=== PATIENT | female | born 1995 | race African-American/Black ===

== ENCOUNTER 2021-11-14 08:00 | Outpatient (CLI) | payer BC, SELFPAY ==
--- NOTE | 2021-11-14 08:15 | MR_ITS ---
[address] [address] Phone:?[phone] Fax:?[phone] Referring Physician Information: Marium Whiting D.D.S. [facility] [phone] [facility] [address] Phone:?[phone] Fax:?[phone] Patient:?Faith Jourdan Tobin.O.B:?1995 Sex:?Female Phone:?[phone] [facility] MRN:?[id number] Exam Date:?11/14/2021 ? EXAM: MRI OF THE TEMPOROMANDIBULAR JOINTS CLINICAL INFORMATION: A 26-year-old female with right greater than left temporomandibular joint pain. History of trauma. TECHNICAL INFORMATION: Examination was performed using the dual 3-inch surface coil device, employing 4 mm thick axial T1-weighted images of the skull base followed by bilateral closed-mouth cephalometrically corrected sagittal dual- echo and STIR images and fully opened mouth proton density oblique sagittal, 3 mm thickness sagittal images through the midcondyle of both joints. T1-weighted coronal images were also acquired. INTERPRETATION: Images reveal normal and symmetrical appearance of the masticatory muscles. The visualized intracranial structures appear normal. Mucosal thickening in the maxillary sinuses is demonstrated. Left TMJ: There is anterior displacement, elongation and deformity of the meniscus. There is regressive remodeling of the condyle with shortening of the proximal segment. There is widening of the anterior joint space. There is increased T2 signal within the condyle and flattening of the articular surface of the condylar head. Open-mouth images reveal severely restricted range of motion without reduction of the meniscus. Right TMJ: There is anterior displacement and elongation of the meniscus with widening of the anterior joint space. Remodeling of the condyle is demonstrated. The articular eminence is normal. Marrow signal characteristics 0 normal. Open- mouth images reveal severely restricted range of motion without reduction of the meniscus. CONCLUSION: 1. Left TMJ: Stage V (advanced) internal derangement. Abnormal marrow signal ray represent marrow edema, regional osteoporosis or early avascular necrosis within the condyle. 2. Right TMJ: Stage IV (intermediate to advanced) internal derangement. Severely restricted range of motion bilaterally. 3. Maxillary sinus mucosal thickening. Electronically signed on 11/15/2021 1:58:00 PM by Mickey Cobian M.D.
== END 2021-11-14 08:01 | disposition home or self-care (01) ==
LOC: MRI 08:02
PROVIDERS: Visit Provider Dentist General Practice
DX: M26.52 Limited mandibular range of motion (principal); M26.602 Left temporomandibular joint disorder, unspecified; M26.601 Right temporomandibular joint disorder, unspecified; J32.0 Chronic maxillary sinusitis
CPT/HCPCS: 70336

== ENCOUNTER 2021-11-27 20:00 | Outpatient (CLI) | payer BC, MEDICAID, SELFPAY | END 2021-11-27 20:01 | disposition home or self-care (01) | LOC: LKVREF 11-30 11:21 | PROVIDERS: Visit Provider Nurse Practitioner Family | DX: N89.8 Other specified noninflammatory disorders of vagina (principal) | CPT/HCPCS: 87491; 87591 ==

== ENCOUNTER 2022-03-01 11:15 | Outpatient (RCR) | payer BC, MEDICAID, SELFPAY | END 2022-03-04 08:03 | disposition home or self-care (01) | PROVIDERS: Visit Provider Dentist General Practice | DX: M79.10 Myalgia, unspecified site (principal); Z51.89 Encounter for other specified aftercare | CPT/HCPCS: 97035; 97110; 97140; 97162 ==

== ENCOUNTER 2022-06-20 09:55 | Outpatient (CLI) | payer BC, MEDICAID, SELFPAY ==
[2022-06-20 15:42] LABS: Chlamydia DNA Amplified* NOT DETECTED (No Detected); GC DNA Amplified* NOT DETECTED (No Detected)
== END 2022-06-20 09:56 | disposition home or self-care (01) ==
PROVIDERS: Visit Provider Advanced Practice Midwife
DX: Z01.419 Encounter for gynecological examination (general) (routine) without abnormal findings (principal); Z13.6 Encounter for screening for cardiovascular disorders; Z11.3 Encounter for screening for infections with a predominantly sexual mode of transmission
CPT/HCPCS: 0353U; 80061; 84702; 86592; 86703; 86803; 87340; 87491; 87591

== ENCOUNTER 2023-04-03 11:52 | Emergency (ER) | payer BC, MEDICAID, SELFPAY ==
[2023-04-03 12:27] VITALS: BP 117/83; PULSE 71; RESP 18; TEMP 36.6; O2SAT 99; BMI 28.9
--- OUTSIDE RECORDS SUMMARY | 2023-04-03 12:48 | XMS_ITS | Data Portability ---
Author Name Unknown Address [address] [place] [address] Phone [phone] Organization [facility] Address [address] [place] [phone] Assessment No assessment recorded. Plan of Treatment Reminders Order Date Submit Date Provider Last Modified By Organization Details Last Modified Time Details Appointments None recorded. Lab rapid SARS CoV 2 Ag, QL IA, respiratory specimen [address], [address] [place] [address], [id number], 14:12:37 rapid SARS CoV 2 Ag, QL IA, respiratory specimen [address], [address] [place] [address], [id number], 11:18:52 rapid SARS CoV 2 Ag, QL IA, respiratory specimen [address], [address] [place] [address], [id number], 15:48:11 Referral None recorded. Procedures None recorded. Surgeries None recorded. Imaging None recorded. Medication Orders None recorded. Patient TargetsNo targets recorded. Patient Instructions Encounter Date Encounter Id Patient Instructions Last Modified By Organization Details Last Modified Time 04/10/2021 [id number] Keep a safe distance. ... ?? Wear a mask. ... ?? Encourage proper hygiene. ... ?? The best way to protect yourself and others is to stay home for 14 days if you think you? ve been exposed to someone who has COVID-19. ?? Watch for fever (100.4??F or higher), cough, shortness of breath, or other symptoms of COVID-19. ?? Consider getting tested for COVID-19. Even if you test negative for COVID-19 or feel healthy, you should still stay home (quarantine) for 14 days after your last contact with a person who has COVID-19. This is because symptoms may appear 2 to 14 days after exposure to the virus, and some infected people never have symptoms but are still contagious. ?? Do not travel until 14 days after your last possible exposure. ?? Monitor yourself and household members for symptoms of COVID-19. ?? Get information about COVID-19 testing if you feel sick. Look for emergency warning signs* for COVID-19. If you have any of these signs, seek emergency medical care immediately ?? Trouble breathing ?? Persistent pain or pressure in the chest ?? New confusion ?? Inability to wake or stay awake [email or web address] Not available 04/16/2021 14:12:36 02/20/2021 [id number] Keep a safe distance. ... ?? Wear a mask. ... ?? Encourage proper hygiene. ... ?? The best way to protect yourself and others is to stay home for 14 days if you think you? ve been exposed to someone who has COVID-19. ?? Watch for fever (100.4??F or higher), cough, shortness of breath, or other symptoms of COVID-19. ?? Consider getting tested for COVID-19. Even if you test negative for COVID-19 or feel healthy, you should still stay home (quarantine) for 14 days after your last contact with a person who has COVID-19. This is because symptoms may appear 2 to 14 days after exposure to the virus, and some infected people never have symptoms but are still contagious. ?? Do not travel until 14 days after your last possible exposure. ?? Monitor yourself and household members for symptoms of COVID-19. ?? Get information about COVID-19 testing if you feel sick. Look for emergency warning signs* for COVID-19. If you have any of these signs, seek emergency medical care immediately ?? Trouble breathing ?? Persistent pain or pressure in the chest ?? New confusion ?? Inability to wake or stay awake Not available 02/27/2021 11:13:39 [email or web address] Not available 02/27/2021 11:13:32 02/01/2021 [id number] Keep a safe distance. ... ?? Wear a mask. ... ?? Encourage proper hygiene. ... ?? The best way to protect yourself and others is to stay home for 14 days if you think you? ve been exposed to someone who has COVID-19. ?? Watch for fever (100.4??F or higher), cough, shortness of breath, or other symptoms of COVID-19. ?? Consider getting tested for COVID-19. Even if you test negative for COVID-19 or feel healthy, you should still stay home (quarantine) for 14 days after your last contact with a person who has COVID-19. This is because symptoms may appear 2 to 14 days after exposure to the virus, and some infected people never have symptoms but are still contagious. ?? Do not travel until 14 days after your last possible exposure. ?? Monitor yourself and household members for symptoms of COVID-19. ?? Get information about COVID-19 testing if you feel sick. Look for emergency warning signs* for COVID-19. If you have any of these signs, seek emergency medical care immediately ?? Trouble breathing ?? Persistent pain or pressure in the chest ?? New confusion ?? Inability to wake or stay awake [email or web address] Not available 02/01/2021 11:18:21 Reason for Referral None Reported. Results Created Date Observation Date Name Description Value Unit Range Abnormal Flag LastModifiedBy Organization Detail LastModifiedTime 02/02/20 21 02/01/2021 rapid SARS CoV 2 Ag, QL IA, respi rator y speci men Results negati ve Not Available [address], [address], 02/01/2021 11:18:10 04/10/19 22 04/10/2021 rapid SARS CoV 2 Ag, QL IA, respi rator y speci men Results positi ve Not Available [address], [address], 04/10/2021 11:16:00 Result Notes None recorded. Medical Equipment None Reported. Medications Name Sig Start Date Stop Date Status Note LastModified by Organization Details LastModified Time ondansetron HCl 4 mg tablet TAKE 1 TABLET BY MOUTH EVERY 6 HOURS NEEDED active Not Available Not Available No t Available metronidazole 500 mg tablet TAKE 1 TABLET BY MOUTH DAILY active Not Available Not Available No t Available valacyclovir 500 mg tablet TAKE 1 TABLET BY MOUTH TWICE DAILY. START AT 36 WEEKS active Not Available Not Available No t Available pantoprazole 20 mg tablet,delayed release TAKE 1 TABLET BY MOUTH DAILY active Not Available Not Available No t Available Vitals None Recorded Social History None recorded. Functional Status None recorded. Mental Status None recorded. Family History Nothing Reported. Medical History No medical history recorded. Gynecological HistoryNo gynecological history recorded. Obstetrics History GPAL:G 0 P 0 0 0 0 Past Encounters Encounter ID Performer Location Encounter Start Date Encounter Closed Date Diagnosis/Indication [id number] [address] 02/01/2021 11:15:19 02/01/2021 11:25:30 Exposure to SARS-CoV-2 Counseling [id number] AS[address] Tello [address] [address] 02/20/2021 13:20:14 02/20/2021 13:26:36 Exposure to SARS-CoV-2 Counseling [id number] ASAD Tello Jey [address] [address] 04/10/2021 11:03:57 04/10/2021 11:16:22 Exposure to SARS-CoV-2 Sore throat Fever Cough Counseling COVID-19 Health Concerns Section Related Observation LastModified by Organization Detai ls LastModified Time None Recorded Concern Status LastModified by Organization Details LastModified Time None Recorded Advance Directives Directive None Recorded Payers Encounter Date Sequence Insurance Name Policy Number Policy García Covered Member ID García Member ID Guarantor Name 04/10/2021 2 UCARE - UCARE - DOS ON OR AFTER 2021 (MEDICAID REPLACEMENT - HMO) Faith Soliman [id number] Faith Soliman 02/20/2021 1 [employer]ARE - DOS PRIOR TO 2021 (MEDICAID REPLACEMENT - HMO) MAMTA Soliman [id number] Faith Soliman 02/01/2021 1 [employer] - DOS PRIOR TO 2021 (MEDICAID REPLACEMENT - HMO) MAMTA Soliman [id number] Faith Soliman Notes Date Note Type Note Provider Name and Address Organization Details Recorded Time 02/01/2021 text/html HPI Notes: Patient here for covid testing due to exposure. Patient has cough, runny nose, slight headaches, and no fevers or chills. ASAD Tello [address] [place], [address], [employer] 02/08/2021 15:48:19 02/20/2021 text/html HPI Notes: patient here for covid testing due to exposure ASAD Tello [address] [place], [address], [employer] 03/02/2021 11:18:56 04/10/2021 text/html HPI Notes: Patient complains for fever, sorethroat and cough. RUSTY TelloC [address] [place], [address], [employer] 04/16/2021 14:12:41 OBGyn Episode No OBEpisode recorded.
--- OUTSIDE RECORDS SUMMARY | 2023-04-03 12:48 | XMS_ITS | Referral Summary ---
Author Name Unknown Organization [place] Address [facility] [place] [address] Care Team Providers Care Developmental Writing Instructor Name Role Phone Beka Baker MD Primary Care Provider [phone] Allergies No known active allergies Medications Medication Sig Dispensed Refills Start Date End Date Status clindamycin-benzoyl peroxide (BENZACLIN) gelIndications:Routin e infant or child health check Apply topically 2 times daily. 50 g 11 10/08/2010 Active Active Problems Problem Noted Date Diagnosed Date Myopia 12/05/2006 Cataract Overview: congenital Problem list name updated by automated process. Provider to review Resolved Problems Problem Noted Date Diagnosed Date Resolved Date NO ACTIVE PROBLEMS 04/28/2004 7 Immunizations Name Administration Dates Next Due DTAP (<7y) 09/06/2002, 9,03/06/1998,01/11/1998, 1997 HEPA 2009,03/06/2009 HIB (PRP-T) 12/11/1998,03/06/1998,01/11/1998 ,1997 HPV 03/06/2009,11/07/2008,09/06/2008 HepB 06/19/1998,1997,1997 MMR 09/06/2002,09/11/1998 Mantoux Tuberculin Skin Test 09/06/2002 Meningococcal ACWY (Menactra??) 11/07/2008 Poliovirus, inactivated (IPV) 09/06/2002, 999,01/11/1998,1997 Rotavirus, Pentavalent 06/19/1998,03/06/1998, TDAP Vaccine (Boostrix) 03/06/2009 Varicella 09/06/2008,09/11/1998 Social History Tobacco Use Types Packs/Day Years Used Date Smoking Tobacco: Never Smokeless Tobacco: Never Alcohol Use Standard Drinks/Week Comments No 0 (1 standard drink = 0.6 oz pur e alcohol) Adolescent Education Answer Date Record ed Getting School Help Needed Not on file 12/21 Sex and Gender Information Value Date Recorded Sex Assigned at Not on file Gender Identity Not on file Sexual Orientation Not on file Last Filed Vital Signs Vital Sign Reading Time Taken Comments Blood Pressure 112/72 08/29/2018 12:30 AM CDT Pulse 97 08/28/2018 11:03 PM CDT Temperature 36.7 ??C (98 ??F) 08/28/2018 11:03 PM CDT Respiratory Rate 18 08/28/2018 11:03 PM CDT Oxygen Saturation 100% 08/28/2018 11:03 PM CDT Inhaled Oxygen Concentration - - Weight 44.6 kg (98 lb 4 oz) 10/08/2010 1:47 PM C DT Height 156.2 cm (5' 1.5) 10/08/2010 1:47 PM CDT Body Mass Index 18.26 10/08/2010 1:47 PM CDT Plan of Treatment Not on file Care Teams Developmental Writing Instructor Relationship Specialty Start Date End Date Beka Baker MD PCP - General Family Practice 08/29/18
--- OUTSIDE RECORDS SUMMARY | 2023-04-03 12:48 | XMS_ITS | Clinical Summary ---
Author Name Unknown Organization [place] Address [facility] [place] [address] Care Team Providers Care Retail Client Solutions Consultant Name Role Phone Beka Baker MD Primary Care Provider [phone] Allergies No known active allergies Medications Medication [...] 10/08/2010 1:47 PM CDT Plan of Treatment Health Maintenance Due Date Last Done Comments ADVANCE CARE PLANNING 1995 ANNUAL REVIEW OF HM ORDERS 1995 COVID-19 Vaccine (#1) 03/10/1998 YEARLY PREVENTIVE VISIT 10/09/2011 10/09/19 11, 2009, 09/06/2008, Additional history exists HIV SCREENING 2012 HEPATITIS C SCREENING 09/09/2015 PAP 2018 DTAP/TDAP/TD IMMUNIZATION (7 - Td or Tdap) 03/06/2019 03/06/2009, 09/06/2002, 12/11/1998, Additional history exists INFLUENZA VACCINE (#1) 2022 PHQ-2 (once per calendar year) 2023 HEPATITIS B IMMUNIZATION Completed 999, 06/19/1998, 03/06/1998, Additional history exists IPV IMMUNIZATION Completed 09/06/2002, , 09/11/1998, Additional history exists MENINGITIS IMMUNIZATION Aged Out 11/07/2008 No l onger eligible based on patient's age to complete this topic HPV IMMUNIZATION Completed 03/06/2009, , 11/07/2008, Additional history exists Pneumococcal Vaccine: Pediatrics (0 to 5 Years) and At-Risk Patients (6 to 64 Years) Aged Out No longer eligible based on patient's age to complete this topic RSV MONOCLONAL ANTIBODY Aged Out No l onger eligible based on patient's age to complete this topic Care Teams Retail Client Solutions Consultant Relationship Specialty Start Date End Date Beka Baker MD PCP - General Family Practice 08/29/18
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
[2023-04-03] MEDS: KETOROLAC 15 MG/ML inj IVP (13:05)
[2023-04-03 13:06] LABS: Appearance Urine Clear (Clear); Bilirubin Urine Negative (Negative); Blood Urine 2+ (Negative); Color Urine Yellow (Yellow); Glucose Urine Negative (Negative); Ketones Urine Negative (Negative); Leukocyte Esterase Urine Negative (Negative); Nitrite Urine Negative (Negative); Protein Urine Negative (Negative); Specific Gravity Urine 1.025 (1.000-1.030); Urobilinogen Urine 0.2 (0.2-1.0)
[2023-04-03 13:08] LABS: Basophils Percent Auto 0.3 % (0.0-3.0); Eosinophils Percent Auto 2.2 % (0.0-7.0); Hematocrit 40.8 % (33.0-51.0); Hemoglobin* 13.3 gm/dL (12.0-16.0); Immature Granulocytes Pct Auto 0.1 %; Lymphocytes Percent Auto 23.5 % (20-44); Mean Corpuscular HGB Conc 33 gm/dL (32-36); Mean Corpuscular Hemoglobin 29 pg (26-34); Mean Corpuscular Volume 90 fL (80-100); Monocytes Percent Auto 8.3 % (0.0-11.0); Neutrophils Percent Auto 65.6 % (42.0-72.0); Platelet Count* 311 K/uL (140-440); RDW Coefficient of Variation % 12.5 % (11.5-15.5); Red Blood Count 4.56 m/uL (4.00-5.20); White Blood Count* 11.47 K/uL (4.50-11.00)
[2023-04-03 13:11] LABS: Ur HCG Qualitative* Negative (Negative)
[2023-04-03 13:19] LABS: Slide Review Reflex No
[2023-04-03 13:22] LABS: Potassium* 3.6 mmol/L (3.6-5.1)
[2023-04-03 13:24] LABS: Creatinine* 0.6 mg/dL (0.5-1.5); Est. Creatinine Clearance* 113.36; Estimated Glomerular Filt Rate 128 ml/min
[2023-04-03 13:25] LABS: Blood Urea Nitrogen* 13 mg/dL (5-24); Calcium* 8.8 mg/dL (8.4-10.6); Carbon Dioxide* 25 mmol/L (20-32)
[2023-04-03 13:26] LABS: Glucose* 98 mg/dL (60-115)
[2023-04-03 13:28] LABS: RBC Urine 0-2 (0-2); WBC Urine 0-2 (0-5)
[2023-04-03 13:40] VITALS: BP 127/82; PULSE 63; RESP 16; TEMP 36.2; O2SAT 99
[2023-04-03 13:52] LABS: Anion Gap 10 mEq/L (7-15); Chloride* 106 mmol/L (96-114); Sodium* 141 mmol/L (135-149)
== END 2023-04-03 14:13 | disposition home or self-care (01) ==
PROVIDERS: Emergency Provider Student in an Organized Health Care Education/Training Program
DX: N93.9 Abnormal uterine and vaginal bleeding, unspecified (principal)
CPT/HCPCS: 36415; 80048; 81001; 81025; 85025; 96374; 99283; 99284; J1885

== ENCOUNTER 2023-07-09 10:29 | Outpatient (CLI) | payer MEDICAID, SELFPAY ==
--- OUTSIDE RECORDS SUMMARY | 2023-07-09 10:36 | XMS_ITS | Referral Summary ---
Author Name Unknown Organization [place] Address [facility] [place] [address] Care Team Providers Care Director Of Training Name Role Phone Beka Baker MD Primary Care Provider [phone] Encounters Date Type Department Care Team Description 06/18/2023 Travel 06/18/2023 1:55 PM CDT - 06/18/2023 3:20 PM CDT Emergency [facility] Emergency Dept [address] [place] [phone] Jah Felder MD Vaginal bleeding in Discharge Disposition: Home or Self Care from Last 3 Months Allergies No known active allergies Medications Medication Sig Dispensed Refills Start Date End Date Status clindamycin-benzoyl peroxide (BENZACLIN) gelIndications:Routin e or child health check Apply topically 2 [...] Getting School Help Needed Not on file 06/17 Sex and Gender Information Value Date Recorded Sex Assigned at Not on file Gender Identity Not on file Sexual Orientation Not on file Last Filed Vital Signs Vital Sign Reading Time Taken Comments Blood Pressure 126/83 06/18/2023 2:29 PM CDT Pulse 64 06/18/2023 2:29 PM CDT Temperature 36.5 ??C (97.7 ??F) 06/18/2023 2:29 PM CD T Respiratory Rate 19 06/18/2023 2:29 PM CDT Oxygen Saturation 96% 06/18/2023 2:29 PM CDT Inhaled Oxygen Concentration - - Weight 44.6 kg (98 lb 4 oz) 10/08/2010 1:47 PM C DT Height 156.2 cm (5' 1.5) 10/08/2010 1:47 PM CDT Body Mass Index 18.26 10/08/2010 1:47 PM CDT Plan of Treatment Not on file Procedures Procedure Name Priority Date/Time Associated Diagnosis Comments ABO/RH TYPE AND SCREEN STAT 06/18/2023 2:25 PM CDT CBC WITH PLATELETS & DIFFERENTIAL STAT 06/18/2023 2:25 PM CDT TYPE AND SCREEN, ADULT STAT 06/18/2023 2:25 PM CDT CBC WITH PLATELETS AND DIFFERENTIAL STAT 06/18/2023 2:25 PM CDT EXTRA RED TOP TUBE STAT 06/18/2023 2: 25 PM CDT EXTRA BLUE TOP TUBE STAT 06/18/2023 2 :25 PM CDT HCG QUANTITATIVE STAT 06/18/2023 2:25 PM CDT EXTRA TUBE STAT 06/18/2023 2:25 PM CDT ROUTINE UA WITH MICROSCOPIC STAT 06/18/2023 1:32 PM CDT HCL PAP SMEAR Routine 08/09/1998 1:18 PM CDT Gynecologic Examination from Last 3 Months or Most Recently Relevant to Health Maintenance Results * Extra Red Top Tube (06/18/2023 2:25 PM CDT) Hold Specimen [facility] 06/18/2023 3:47 PM CDT [facility] LABORATORY Blood STRUCTURE OF RIGHT UPPER LIMB / Unknown Venipuncture / Unknown 06/18/2023 2:25 PM CDT 06/18/2023 2:34 PM CDT Jah Felder MD LAB - BLOOD ORDERABL ES [facility] LABORATORY [facility] [address] Lab (1st floor, no room number) [place] [address], [facility] * Extra Blue Top Tube (06/18/2023 2:25 PM CDT) Hold Specimen [facility] 06/18/2023 3:47 PM CDT RH LABORATORY Blood STRUCTURE OF RIGHT UPPER LIMB / Unknown Venipuncture / Unknown 06/18/2023 2:25 PM CDT 06/18/2023 2:34 PM CDT Jah Felder MD LAB - BLOOD ORDERABL ES [facility] [address] Lab (1st floor, no room number) [place] [address], [facility] * CBC with platelets and differential (06/18/2023 2:25 PM CDT) WBC Count 8.6 4.0 - 11.0 10e3/uL 06/18/2023 2:38 PM CDT [facility] LABORATORY RBC Count 4.59 3.80 - 5.20 10e6/uL 06/18/2023 2:38 PM CDT [facility] LAB[facility] Hemoglobin 13.4 11.7 - 15.7 g/dL 06/18/2023 2:38 PM CDT [facility] LAB[facility] Hematocrit 40.9 35.0 - 47.0 % 06/18/2023 2:38 PM CDT [facility] LAB[facility] MCV 89 78 - 100 fL 06/18/2023 2:38 PM CDT [facility] LAB[facility] MCH 29.2 26.5 - 33.0 pg 06/18/2023 2:38 PM CDT [facility] LAB[facility] MCHC 32.8 31.5 - 36.5 g/dL 06/18/2023 2:38 PM CDT [facility] LAB[facility] RDW 12.8 10.0 - 15.0 % 06/18/2023 2:38 PM CDT [facility] Platelet Count 305 150 - 450 10e3/uL 06/18/2023 2:38 PM CDT [facility] % Neutrophils 69 % 06/18/2023 2:38 PM CDT [facility] % Lymphocytes 20 % 06/18/2023 2:38 PM CDT [facility] % Monocytes 8 % 06/18/2023 2:38 PM CDT [facility] % Eosinophils 1 % 06/18/2023 2:38 PM CDT [facility] % Basophils 1 % 06/18/2023 2:38 PM CDT [facility] % Immature Granulocytes 1 % 06/18/2023 2:38 PM CDT [facility] LAB[facility] NRBCs per 100 WBC 0 <1 /100 024 2:38 PM CDT [facility] LAB[facility] Absolute Neutrophils 5.9 1.6 - 8.3 10e3/uL 06/18/2023 2:38 PM CDT [facility] LAB[facility] Absolute Lymphocytes 1.7 0.8 - 5.3 10e3/uL 06/18/2023 2:38 PM CDT [facility] LAB[facility] Absolute Monocytes 0.7 0.0 - 1.3 10e3/uL 06/18/2023 2:38 PM CDT [facility] LABORATORY Absolute Eosinophils 0.1 0.0 - 0.7 10e3/uL 06/18/2023 2:38 PM CDT [facility] LABORAT[facility] Absolute Basophils 0.1 0.0 - 0.2 10e3/uL 06/18/2023 2:38 PM CDT RH LABORATORY Absolute Immature Granulocytes 0.0 <=0.4 10e3/uL 06/18/2023 2:38 PM CDT RH LABORATORY Absolute NRBCs 0.0 10e3/uL 06/18/2023 2:38 PM CDT [facility] LAB[facility] Blood STRUCTURE OF RIGHT UPPER LIMB / Unknown Venipuncture / Unknown 06/18/2023 2:25 PM CDT 06/18/2023 2:34 PM CDT Jah Felder MD LAB - BLOOD ORDERABL ES LABORATORY [facility] [address] [facility] Lab (1st floor, no room number) [place] [address] * Adult Type and Screen (06/18/2023 2:25 PM CDT) ABO/RH(D) O POS 06/18/2023 1:32 PM CDT RH BLOOD BANK Antibody Screen Negative Negative 06/18/2023 1:32 PM CDT RH BLOOD BANK SPECIMEN EXPIRATION DATE [id number] 06/18/2023 1:32 PM CDT RH BLOOD BANK Blood STRUCTURE OF RIGHT UPPER LIMB / Unknown Venipuncture / Unknown 06/18/2023 2:25 PM CDT 06/18/2023 2:34 PM CDT Jah Felder MD LAB - BLOOD BANK [facility] T ORDER RH BLOOD BANK [address] [place] [address] * (ABNORMAL) HCG QUANTitative (blood) (06/18/2023 2:25 PM CDT) hCG Quantitative 44(H) <5 mIU/mL 06/18/19 3:04 PM CDT RH LABORATORY Comment: Adult: 0-5 mIU/mL for healthy non- person Neonates: Should be within normal ranges by 2 days after Blood STRUCTURE OF RIGHT UPPER LIMB / Unknown Venipuncture / Unknown 06/18/2023 2:25 PM CDT 06/18/2023 2:34 PM CDT Jha Felder MD LAB - BLOOD ORDERABL ES LABORATORY [facility] [address] Lab (1st floor, no room number) [place] [address] * (ABNORMAL) UA with Microscopic (06/18/2023 1:32 PM CDT) Color Urine Straw Colorless, Straw, Light Yellow, Yellow 06/18/2023 2:10 PM CDT LABORATORY Appearance Urine Clear Clear 06/18/19 2:10 PM CDT LABORATORY Glucose Urine Negative Negative mg/dL 06/18/2023 2:10 PM CDT LABORATORY Bilirubin Urine Negative Negative 2:10 PM CDT LABORATORY Ketones Urine Negative Negative mg/dL 06/18/2023 2:10 PM CDT LABORATORY Specific [place] Urine 1.011 1.003 - 1.035 06/18/2023 2:10 PM CDT LABORATORY Blood Urine Small(A) Negative 06/18/2023 2:10 PM CDT LABORATORY pH Urine 7.0 5.0 - 7.0 06/18/2023 2:10 PM CDT LABORATORY Protein Albumin Urine Negative Negative mg/dL 06/18/2023 2:10 PM CDT LABORATORY Urobilinogen Urine Normal Normal, 2.0 mg/dL 06/18/2023 2:10 PM CDT LABORATORY Nitrite Urine Negative Negative 06/18/2023 2:10 PM CDT RH LABORATORY Leukocyte Esterase Urine Negative Negative 06/18/2023 2:10 PM CDT RH LABORATORY Bacteria Urine Few(A) None Seen /HPF 06/18/2023 2:10 PM CDT RH LABORATORY RBC Urine 1 <=2 /HPF 06/18/2023 2:10 PM CDT RH LABORATORY WBC Urine <1 <=5 /HPF 06/18/2023 2:10 PM CDT RH LABORATORY Squamous Epithelials Urine 2(H) <=1 /HPF 06/18/2023 2:10 PM CDT LABORATORY Urine URINE SPECIMEN OBTAINED BY CLEAN CATCH PROCEDURE / Unknown Non-blood Collection / Unknown 06/18/2023 1:32 PM CDT 06/18/2023 1:58 PM CDT Jah Felder MD LAB - URINE ORDERABL ES LABORATORY [facility] Lab [address] [facility] Lab (1st floor, no room number) [place] [address] * PAP SMEAR (08/09/1998 1:18 PM CDT) Unlabelled DNR [facility] Biopsy Sent DNR [facility] Source VAG,CERV,E NDOCERV [facility] LMP POST [facility] PARA 3 [facility] 2 [facility] Clinical History DNR [facility] Therapy DNR [facility] Last Pap Diagnosis WITHIN NORMAL LIMITS [facility] PAP Date [id number] [facility] Specimen # DNR [facility] Tissue DNR [facility] Tissue Date DNR [facility] Statement of Adequacy [facility] Comment: SATISFACTORY FOR INTERPRETATION POST MENOPAUSAL PATIENT. ??NO ENDOCERVICAL CELLS SEEN. General Categorization DNR [facility] Descriptive Diagnosis [facility] Comment: WITHIN NORMAL LIMITS ATROPHIC CELL PATTERN Recommendations DNR [facility] DNR 114,,,,,, [facility] DNR DNR [facility] DNR DNR [facility] DNR DNR [facility] . [facility] Comment: ?PAP SMEARS ARE SUBJECT TO BOTH FALSE NEGATIVE AND FALSE ? POSITIVE RESULTS EVIDENCED BY DATA PUBLISHED IN THE ? MEDICAL LITERATURE. ??YOUR PATIENT'S RESULT SHOULD BE ? INTERPRETED IN THIS CONTEXT, TOGETHER WITH THE PATIENT'S ? HISTORY AND CLINICAL FINDINGS. TESTING LOCATION ? THIS TEST [facility] PERFOR[facility] AT [facility] ? [address]. [id number] ? PHONE NUMBERS FOR CYTOLOGY INQUIRES, INCLUDING SLIDE REQUESTS ? EXT. [id number] ?? EXT. [id number] 08/07/1998 Matilda Snyder MD LABORATORY [facility] from Last 3 Months or Most Recently Relevant to Health Maintenance Care Teams Director Of Training Relationship Specialty Start Date End Date Beka Baker MD PCP - General Family Practice 08/29/18
--- OUTSIDE RECORDS SUMMARY | 2023-07-09 10:36 | XMS_ITS | Encounter Summary ---
Author Name Unknown Organization [place] Address [facility] [place] [address] Care Team Providers Care Estimator Paperboard Boxes Name Role Phone Beka Baker MD Primary Care Provider [phone] Encounter Details Date Type Department Care Team (Late st Contact Info) Description 06/18/2023 1:55 PM CDT - 06/18/2023 3:20 PM CDT Emergency [facility] Emergency Dept [address] [place] [phone] Jah Felder MD [facility] [address] [facility] [address] [place] [phone] Vaginal bleeding in Discharge Disposition: Home or Self Care Social History Tobacco Use Types Packs/Day Years [...] on file Sexual Orientation Not on file documented as of this encounter Last Filed Vital Signs Vital Sign Reading Time Taken Comments Blood Pressure 126/83 06/18/2023 2:29 PM CDT Pulse 64 06/18/2023 2:29 PM CDT Temperature 36.5 ??C (97.7 ??F) 06/18/2023 2:29 PM CD T Respiratory Rate 19 06/18/2023 2:29 PM CDT Oxygen Saturation 96% 06/18/2023 2:29 PM CDT Inhaled Oxygen Concentration - - Weight - - Height - - Body Mass Index - - documented in this encounter Discharge Instructions * Attachments The following attachments cannot be sent through Care Everywhere. * : Vaginal Bleeding (Guinean) documented in this encounter Medications at Time of Discharge Medication Sig Dispensed Refills Start Date End Date clindamycin-benzoyl peroxide (BENZACLIN) gelIndications:Routine infant or child health check Apply topically 2 times daily. 50 g 11 10/08/2010 documented as of this encounter ED Notes * Katerina Harmon RN - 06/18/2023 1:28 PM CDT Pt presents to ED with c/o lower abdominal cramping since yesterday. Pt had some light vaginal bleeding yesterday. Had a positive home test today. LMP started 06/08; pt notes it started a week later than usual. Alert and ambulatory. Pt reports that this is her 3rd ; has 2 children at home. * Jah Felder MD - 06/18/2023 1:17 PM CDT History Chief Complaint: No chief complaint on file. MAR Soliman is a 27 year old female with complaints of vaginal bleeding and lower abdominal cramping beginning yesterday. Last menstrual period began a week late on June 08 and ended 2 days ago. She then began rebleeding yesterday. She has had 2 previous uncomplicated pregnancies. 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 Physical Exam Patient Vitals for the past 24 hrs: BP Temp Temp src Pulse Resp SpO2 06/18/23 1429 126/83 97.7 ??F (36.5 ??C) Oral 64 19 96 % 06/18/23 1428 -- -- -- -- -- 92 % 06/18/23 1427 126/83 -- -- 65 -- -- 06/18/23 1330 116/78 97.8 ??F (36.6 ??C) Temporal 71 16 98 % Physical Exam General: Patient is alert and cooperative. Neck: Normal range of motion and appearance. Cardiovascular: Normal rate. Pulmonary/Chest: Effort normal. Abdominal: Soft. No distension or tenderness. Musculoskeletal: Normal range of motion. Neurological: oriented, normal strength, sensation, and coordination. Skin: Warm and dry. No rash or bruising. Psychiatric: Normal mood and affect. Normal behavior and judgement. Emergency Department Course Laboratory: Labs Ordered and Resulted from Time of ED Arrival to Time of ED Departure HCG QUANTITATIVE - Abnormal Result Value hCG Quantitative 44 (*) ROUTINE UA WITH MICROSCOPIC - Abnormal Color Urine Straw Appearance Urine Clear Glucose Urine Negative Bilirubin Urine Negative Ketones Urine Negative Specific [place] Urine 1.011 Blood Urine Small (*) pH Urine 7.0 Protein Albumin Urine Negative Urobilinogen Urine Normal Nitrite Urine Negative Leukocyte Esterase Urine Negative Bacteria Urine Few (*) RBC Urine 1 WBC Urine <1 Squamous Epithelials Urine 2 (*) CBC WITH PLATELETS AND DIFFERENTIAL WBC Count 8.6 RBC Count 4.59 Hemoglobin 13.4 Hematocrit 40.9 MCV 89 MCH 29.2 MCHC 32.8 RDW 12.8 Platelet Count 305 % Neutrophils 69 % Lymphocytes 20 % Monocytes 8 % Eosinophils 1 % Basophils 1 % Immature Granulocytes 1 NRBCs per 100 WBC 0 Absolute Neutrophils 5.9 Absolute Lymphocytes 1.7 Absolute Monocytes 0.7 Absolute Eosinophils 0.1 Absolute Basophils 0.1 Absolute Immature Granulocytes 0.0 Absolute NRBCs 0.0 TYPE AND SCREEN, ADULT ABO/RH(D) O POS Antibody Screen Negative SPECIMEN EXPIRATION DATE [id number] Emergency Department Course & Assessments: Interventions: Medications - No data to display Social Determinants of Health affecting care: None Disposition: The patient was discharged. Impression & Plan [facility] Diagnoses: None Medical Decision Making: with +home UPT, trace cramping, spotting, LMP 06/08. Non tender exam. Rh+, quant hcg 44. Discussed extremely early , spontaneous , less likely ectopic; offered pelvic us, declines; advised follow up staff veterinarian this week for re-check, repeat hcg, return if escalating pain, bleeding,concerns. Diagnosis: ICD-10-CM 1. Vaginal bleeding in O46.90 Discharge Medications: Discharge Medication List as of 06/18/2023 3:18 PM Jah Felder MD 06/18/2023 Jah Felder MD Isaacson, Brian A, MD 06/19/23 0953 documented in this encounter Plan of Treatment Not on file documented as of this encounter Procedures Procedure Name Priority Date/Time Associated Diagnosis Comments EXTRA TUBE STAT 06/18/2023 2:25 PM CDT EXTRA RED TOP TUBE STAT 06/18/2023 2: 25 PM CDT EXTRA BLUE TOP TUBE STAT 06/18/2023 2 :25 PM CDT CBC WITH PLATELETS AND DIFFERENTIAL STAT 06/18/2023 2:25 PM CDT TYPE AND SCREEN, ADULT STAT 06/18/2023 2:25 PM CDT CBC WITH PLATELETS & DIFFERENTIAL STAT 06/18/2023 2:25 PM CDT HCG QUANTITATIVE STAT 06/18/2023 2:25 PM CDT ABO/RH TYPE AND SCREEN STAT 06/18/2023 2:25 PM CDT ROUTINE UA WITH MICROSCOPIC STAT 06/18/2023 1:32 PM CDT documented in this encounter Results * Adult Type and Screen (06/18/2023 2:25 PM CDT) ABO/RH(D) O POS 06/18/2023 1:32 PM CDT RH BLOOD BANK Antibody Screen Negative Negative 06/18/2023 1:32 PM CDT RH BLOOD BANK SPECIMEN EXPIRATION DATE [id number] 06/18/2023 1:32 PM CDT RH BLOOD BANK Blood STRUCTURE OF RIGHT UPPER LIMB / Unknown Venipuncture / Unknown 06/18/2023 2:25 PM CDT 06/18/2023 2:34 PM CDT Jah Felder MD LAB - BLOOD BANK [facility] T ORDER RH BLOOD BANK [address] [place] [address], [facility] * CBC with platelets and differential (06/18/2023 2:25 PM CDT) Pathologist [facility] WBC Count 8.6 4.0 - 11.0 10e3/uL [...] Felder MD LAB - BLOOD ORDERABL ES [facility] Lab [address] Lab (1st floor, no room number) [place] [address] * Extra Red Top Tube (06/18/2023 2:25 PM CDT) Hold Specimen [facility] 06/18/2023 3:47 PM CDT RH LABORATORY Blood STRUCTURE OF RIGHT UPPER LIMB / Unknown Venipuncture / Unknown 06/18/2023 2:25 PM CDT 06/18/2023 2:34 PM CDT Jah Felder MD LAB - BLOOD ORDERABL ES [facility] Lab [address] Lab (1st floor, no room number) [place] [address] * Extra Blue Top Tube (06/18/2023 2:25 PM CDT) Hold Specimen [facility] 06/18/2023 3:47 PM CDT RH LABORATORY Blood STRUCTURE OF RIGHT UPPER LIMB / Unknown Venipuncture / Unknown 06/18/2023 2:25 PM CDT 06/18/2023 2:34 PM CDT Jah Felder MD LAB - BLOOD ORDERABL ES LABORATORY [facility] [address] Lab (1st floor, no room number) [place] [phone] * (ABNORMAL) HCG QUANTitative (blood) (06/18/2023 2:25 PM CDT) Pathologist [facility] hCG Quantitative 44(H) <5 mIU/mL 06/18/19 24 3:04 PM CDT RH LABORATORY Comment: Adult: 0-5 mIU/mL for healthy non- person Neonates: Should be within normal ranges by 2 days after Blood STRUCTURE OF RIGHT UPPER LIMB / Unknown Venipuncture / Unknown 06/18/2023 2:25 PM CDT 06/18/2023 2:34 PM CDT Jah Felder MD LAB - BLOOD ORDERABL ES LABORATORY [facility] Lab [address] Lab (1st floor, no room number) [place] [address] * (ABNORMAL) UA with Microscopic (06/18/2023 1:32 PM CDT) Color Urine Straw Colorless, Straw, Light Yellow, Yellow 06/18/2023 2:10 PM CDT RH LABORATORY Appearance Urine Clear Clear 06/18/19 24 2:10 PM CDT RH LABORATORY Glucose Urine Negative Negative mg/dL 06/18/2023 2:10 PM CDT RH LABORATORY Bilirubin Urine Negative Negative 4 2:10 PM CDT RH LABORATORY Ketones Urine Negative Negative mg/dL 06/18/2023 2:10 PM CDT RH LABORATORY Specific [place] Urine 1.011 1.003 - 1.035 06/18/2023 2:10 PM CDT RH LABORATORY Blood Urine Small(A) Negative 06/18/2023 2:10 PM CDT RH LABORATORY pH Urine 7.0 5.0 - 7.0 06/18/2023 2:10 PM CDT RH LABORATORY Protein Albumin Urine Negative Negative mg/dL 06/18/2023 2:10 PM CDT RH LABORATORY Urobilinogen Urine Normal Normal, 2.0 mg/dL 06/18/2023 2:10 PM CDT RH LABORATORY Nitrite Urine Negative Negative 06/18/2023 2:10 PM CDT RH LABORATORY Leukocyte Esterase Urine Negative Negative 06/18/2023 2:10 PM CDT RH LABORATORY Bacteria Urine Few(A) None Seen /HPF 06/18/2023 2:10 PM CDT LABORATORY RBC Urine 1 <=2 /HPF 06/18/2023 2:10 PM CDT LABORATORY WBC Urine <1 <=5 /HPF 06/18/2023 2:10 PM CDT RH LABORATORY Squamous Epithelials Urine 2(H) <=1 /HPF 06/18/2023 2:10 PM CDT LABORATORY Urine URINE SPECIMEN OBTAINED BY CLEAN CATCH PROCEDURE / Unknown Non-blood Collection / Unknown 06/18/2023 1:32 PM CDT 06/18/2023 1:58 PM CDT Jah Felder MD LAB - URINE ORDERABL ES LABORATORY [facility] Lab [address] Lab (1st floor, no room number) [place] [address], [facility] documented in this encounter Visit Diagnoses Diagnosis Vaginal bleeding in Unspecified antepartum hemorrhage, unspecified as to episode of care documented in this encounter Care Teams Estimator Paperboard Boxes Relationship Specialty Start Date End Date Beka Baker MD PCP - General Family Practice 08/29/18 documented as of this encounter
--- OUTSIDE RECORDS SUMMARY | 2023-07-09 10:36 | XMS_ITS | Encounter Summary ---
Author Name Unknown Organization [place] Address [address] [facility] [place] [address] Care Team Providers Care Lacquer Maker Name Role Phone Beka Baker MD Primary Care Provider [phone] Encounter Details Date Type Department Care Team (Latest Contact Info) Description 06/18/2023 Travel Social History Tobacco Use Types Packs/Day Years [...] on file documented as of this encounter Plan of Treatment Not on file documented as of this encounter Visit Diagnoses Not on filedocumented in this encounter Care Teams Lacquer Maker Relationship Specialty Start Date End Date Beka Baker MD PCP - General Family Practice 08/29/18 documented as of this encounter
--- OUTSIDE RECORDS SUMMARY | 2023-07-09 10:36 | XMS_ITS | Clinical Summary ---
Author Name Unknown Organization [facility] Address [address] [facility] [place] [address] Care Team Providers Care Residency Coordinator Name Role Phone Beka Baker MD Primary Care Provider [phone] Allergies No known active allergies Medications Medication [...] Resolved Date NO ACTIVE PROBLEMS 04/28/2004 7 Encounters Date Type Department Care Team Description 06/18/2023 1:55 PM CDT - 06/18/2023 3:20 PM CDT Emergency [facility] Emergency Dept [address] [place] [address] Jah Felder MD Vaginal bleeding in Discharge Disposition: Home or Self Care 06/18/2023 Travel from Last 3 Months Immunizations Name Administration Dates Next Due DTAP [...] 1997 ANNUAL REVIEW OF HM ORDERS 1997 YEARLY PREVENTIVE VISIT 10/09/2011 10/09/19 11, 2009, 09/06/2008, Additional history exists HIV SCREENING 2012 HEPATITIS C SCREENING 09/09/2015 DTAP/TDAP/TD IMMUNIZATION (7 - Td or Tdap) 03/06/2019 03/06/2009, 09/06/2002, 12/11/1998, Additional history exists COVID-19 Vaccine ( season) 2022 INFLUENZA VACCINE (#1) 2022 PHQ-2 (once per calendar year) 2023 PAP 06/20/2025 06/20/2022 HEPATITIS B IMMUNIZATION Completed 999, 06/19/1998, 03/06/1998, [...] on patient's age to complete this topic Procedures Procedure Name Priority Date/Time Associated Diagnosis [...] Tube (06/18/2023 2:25 PM CDT) Hold Specimen [facility] 06/18/2023 3:47 PM CDT [facility] LABORATORY Blood STRUCTURE OF RIGHT UPPER LIMB / Unknown Venipuncture / Unknown 06/18/2023 2:25 PM CDT 06/18/2023 2:34 PM CDT Jah eFlder MD LAB - BLOOD ORDERABL ES Performing Organization Address City/[facility]/ZIP Co de Phone Number [facility] Lab [address] Lab (1st floor, no room number) [place] [address] * Extra Blue Top Tube (06/18/2023 2:25 PM CDT) Hold Specimen [facility] 06/18/2023 3:47 PM CDT [facility] LABORATORY Blood STRUCTURE OF RIGHT UPPER LIMB / Unknown Venipuncture / Unknown 06/18/2023 2:25 PM CDT 06/18/2023 2:34 PM CDT Jah Felder MD LAB - BLOOD ORDERABL ES [facility] Lab [address] Lab (1st floor, no room number) [place] [address] * CBC with platelets and differential [...] Felder MD LAB - BLOOD ORDERABL ES Performing Organization Address City/[facility]/ZIP Co de Phone Number RH LABORATORY [facility] Lab [address] [facility] Lab (1st floor, no room number) [place] [address] * Adult Type and Screen (06/18/2023 2:25 PM CDT) ABO/RH(D) O POS 06/18/2023 1:32 PM CDT RH BLOOD BANK Antibody Screen Negative Negative 06/18/2023 1:32 PM CDT RH BLOOD BANK SPECIMEN EXPIRATION DATE [id number] 06/18/2023 1:32 PM CDT RH BLOOD BANK Blood STRUCTURE OF RIGHT UPPER LIMB / Unknown Venipuncture / Unknown 06/18/2023 2:25 PM CDT 06/18/2023 2:34 PM CDT Jah eFlder MD LAB - BLOOD BANK FRANCISCO T ORDER Performing Organization Address [facility] Co de Phone Number RH BLOOD BANK [address] [place] [address] * (ABNORMAL) HCG QUANTitative (blood) (06/18/2023 2:25 [...] LAB - BLOOD ORDERABL ES RH LABORATORY [facility] Acute Care Lab [address] [facility] Lab (1st floor, no room number) [place] [address], [facility] * (ABNORMAL) UA with Microscopic (06/18/2023 1:32 PM CDT) Color Urine Straw Colorless, Straw, Light Yellow, Yellow 06/18/2023 2:10 PM CDT LABORATORY Appearance Urine Clear Clear 06/18/19 24 2:10 PM CDT LABORATORY Glucose Urine Negative Negative mg/dL 06/18/2023 2:10 PM CDT LABORATORY Bilirubin Urine Negative Negative 2:10 PM CDT LABORATORY Ketones Urine Negative Negative mg/dL 06/18/2023 2:10 PM CDT LABORATORY Specific [place] Urine 1.011 1.003 - 1.035 06/18/2023 2:10 PM CDT LABORATORY Blood Urine Small(A) Negative 06/18/2023 2:10 PM CDT LABORATORY pH Urine 7.0 5.0 - 7.0 06/18/2023 2:10 PM CDT LABORATORY Protein Albumin Urine Negative Negative mg/dL 06/18/2023 2:10 PM CDT LABORATORY Urobilinogen Urine Normal Normal, 2.0 mg/dL 06/18/2023 2:10 PM CDT LABORATORY Nitrite Urine Negative Negative 06/18/2023 2:10 PM CDT LABORATORY Leukocyte Esterase Urine Negative Negative 06/18/2023 2:10 PM CDT LABORATORY Bacteria Urine Few(A) None Seen /HPF 06/18/2023 2:10 PM CDT LABORATORY RBC Urine 1 <=2 /HPF 06/18/2023 2:10 PM CDT LABORATORY WBC Urine <1 <=5 /HPF 06/18/2023 2:10 PM CDT LABORATORY Squamous Epithelials Urine 2(H) <=1 /HPF 06/18/2023 2:10 PM CDT LABORATORY Urine URINE SPECIMEN OBTAINED BY CLEAN CATCH PROCEDURE / Unknown Non-blood Collection / Unknown 06/18/2023 1:32 PM CDT 06/18/2023 1:58 PM CDT Jah Felder MD LAB - URINE ORDERABL ES [facility] Acute Care Lab [address] [facility] Lab (1st floor, no room number) [place] [address], [facility] * PAP SMEAR (08/09/1998 1:18 PM CDT) Unlabelled DNR [facility] Biopsy Sent DNR [facility] Source VAG,CERV,E NDOCERV [facility] LMP POST [facility] PARA 3 [facility] 2 [facility] Clinical History DNR [facility] Therapy DNR [facility] Last Pap Diagnosis WITHIN NORMAL LIMITS [facility] PAP Date [id number] [facility] Specimen # DNR [facility] Tissue DNR [facility] Tissue Date DNR [facility] Statement of Adequacy [facility] Comment: SATISFACTORY FOR INTERPRETATION POST MENOPAUSAL PATIENT. ??NO ENDOCERVICAL CELLS SEEN. General Categorization DNR [facility] Descriptive Diagnosis [facility] Comment: WITHIN NORMAL LIMITS ATROPHIC CELL PATTERN Recommendations DNR [facility] DNR 114,,,,,, [facility] DNR DNR [facility] DNR DNR [facility] DNR DNR [facility] . [facility] Comment: ?PAP SMEARS ARE SUBJECT TO BOTH FALSE NEGATIVE AND FALSE ? POSITIVE RESULTS EVIDENCED BY DATA PUBLISHED IN THE ? MEDICAL LITERATURE. ??YOUR PATIENT'S RESULT SHOULD BE ? INTERPRETED IN THIS CONTEXT, TOGETHER WITH THE PATIENT'S ? HISTORY AND CLINICAL FINDINGS. TESTING LOCATION ? THIS TEST WAS PERFORMED AT [facility] [facility] ? [address] [facility]. [address] ? PHONE NUMBERS FOR CYTOLOGY INQUIRES, INCLUDING SLIDE REQUESTS ? EXT. [id number] ?? EXT. 1165 08/07/1998 Matilda Snyder MD LABORATORY Performing Organization Address City/[facility]/ZIP Co de Phone Number [facility] from Last 3 Months or Most Recently Relevant to Health Maintenance Care Teams Residency Coordinator Relationship Specialty Start Date End Date Beka Baker MD PCP - General Family Practice 08/29/18
[2023-07-09 15:25] LABS: Chlamydia DNA Amplified* NOT DETECTED (No Detected); GC DNA Amplified* NOT DETECTED (No Detected)
== END 2023-07-09 10:30 | disposition home or self-care (01) ==
PROVIDERS: Visit Provider Advanced Practice Midwife
DX: Z11.3 Encounter for screening for infections with a predominantly sexual mode of transmission (principal); Z13.220 Encounter for screening for lipoid disorders; Z13.29 Encounter for screening for other suspected endocrine disorder
CPT/HCPCS: 80061; 84443; 86592; 86703; 86704; 86706; 86803; 87340; 87491; 87591

== ENCOUNTER 2023-09-17 13:55 | Outpatient (CLI) | payer MEDICAID, SELFPAY ==
--- OUTSIDE RECORDS SUMMARY | 2023-09-17 14:00 | XMS_ITS | Data Portability ---
Author Organization [facility] Address [address] [place] [phone] Assessment No assessment recorded. Plan of Treatment Reminders Order Date Submit Date Provider Last Modified By Organization Details Last Modified Time Details Appointments None recorded. Lab rapid SARS CoV 2 Ag, QL IA, respiratory specimen [address], [address] [place] [address], [id number], 15:48:11 rapid SARS CoV 2 Ag, QL IA, respiratory specimen [address], [address] [place] [address], [id number], 11:18:52 rapid SARS CoV 2 Ag, QL IA, respiratory specimen [address], [address] [place] [address], [id number], 14:12:37 Referral None recorded. Procedures None recorded. Surgeries None recorded. Imaging None recorded. Medication Orders None recorded. Patient TargetsNo targets recorded. Patient Instructions Encounter Date Encounter Id Patient Instructions Last Modified By Organization Details Last Modified Time 02/01/2021 [id number] Keep a safe distance. ... [...] ?? Inability to wake or stay awake [email or web address] Not available 02/01/2021 11:18:21 02/20/2021 [id number] Keep a safe distance. ... [...] ?? Inability to wake or stay awake [email or web address] Not available 02/27/2021 11:13:39 [email or web address] Not available 02/27/2021 11:13:32 04/10/2021 [id number] Keep a safe distance. ... ?? Wear [...] to wake or stay awake Not available 04/16/2021 14:12:36 Reason for Referral None Reported. Results Created Date Observation Date Name Description Value Unit Range Abnormal Flag LastModifiedBy Organization Detail LastModifiedTime 02/02/20 21 02/01/2021 rapid SARS CoV 2 Ag, QL IA, respi rator y speci men Results negati ve Not Available [address], [address], 02/01/2021 11:18:10 04/10/19 22 04/10/2021 rapid SARS CoV 2 Ag, QL IA, respi rator y speci men Results positi ve Not Available [address], [address], 04/10/2021 11:16:00 Result Notes None recorded. Medical [...] Encounter Start Date Encounter Closed Date Diagnosis/Indication Diagnosis SNOMED-CT Code 7741 ASAD Tello Jey [facility] [address] [place] [address] 02/01/2021 11:15:19 02/01/2021 11:25:30 Exposure to SARS-CoV-2 493720753 Counseling [id number] ASAD Tello Jey [facility] [address] [place] [address] 02/20/2021 13:20:14 02/20/2021 13:26:36 Exposure to SARS-CoV-2 130605023 Counseling [id number] ASAD Tello Jey [address] [address] 04/10/2021 11:03:57 04/10/2021 11:16:22 Exposure to SARS-CoV-2 838371973 Sore throat 133089754 Fever 543549018 Cough 89324413 Counseling [id number] COVID-19 [id number] Health Concerns Section Related Observation LastModified by Organization Detai ls LastModified Time None Recorded Concern Status LastModified by Organization Details LastModified Time None Recorded Advance Directives Directive None Recorded Payers Encounter Date Sequence Insurance Name Policy Number Policy García Covered Member ID García Member ID Guarantor Name 02/01/2021 1 [employer] - DOS PRIOR TO 2021 (MEDICAID REPLACEMENT - HMO) MEMTMA Faith Soliman [id number] Faith Soliman 02/20/2021 1 [employer] - DOS PRIOR TO 2021 (MEDICAID REPLACEMENT - HMO) MAMTA Soliman [id number] Faith Soliman 04/10/2021 2 [employer] - DOS PRIOR TO 2022 (MEDICAID REPLACEMENT - HMO) Faith Soliman [id number] Faith Soliman Notes Date Note Type Note Provider Name and Address Organization Details Recorded Time 02/01/2021 text/html HPI Notes: Patient here for covid testing due to exposure. Patient has cough, runny nose, slight headaches, and no fevers or chills. ASAD Tello [address] [place], [address], [employer] 02/08/2021 15:48:19 02/20/2021 text/html HPI Notes: patient here for covid testing due to exposure ASAD Tello [address] [place], [address], [employer] 03/02/2021 11:18:56 04/10/2021 text/html HPI Notes: Patient complains for fever, sorethroat and cough. ASAD Tello [address] [place], [address], [employer] 04/16/2021 14:12:41 OBGyn Episode No OBEpisode recorded.
--- OUTSIDE RECORDS SUMMARY | 2023-09-17 14:01 | XMS_ITS | Clinical Summary ---
Author Organization [facility] Address [address] [facility] [place] [address] Care Team Providers Care Field Assessor Name Role Phone Beka Baker MD Primary Care Provider [phone] Allergies No known active allergies Medications Medication [...] CDT - 06/18/2023 3:20 PM CDT Emergency [facility] Emergency Dept [address] [place] [address] Jah Felder MD Vaginal bleeding in Discharge [...] history exists COVID-19 Vaccine ( season) 2022 PHQ-2 (once per calendar year) 2023 INFLUENZA VACCINE (#1) 2023 PAP 06/20/2025 06/20/2022 HEPATITIS B IMMUNIZATION [...] WITH MICROSCOPIC STAT 06/18/2023 1:32 PM CDT from Last 3 Months Results * Extra Red Top Tube (06/18/2023 2:25 PM CDT) Hold Specimen [facility] 06/18/2023 3:47 PM CDT RH LABORATORY Blood STRUCTURE OF RIGHT UPPER LIMB / Unknown Venipuncture / Unknown 06/18/2023 2:25 PM CDT 06/18/2023 2:34 PM CDT Jah Felder MD LAB - BLOOD ORDERABL ES LABORATORY [facility] Care Lab [address] Lab (1st floor, no room number) [address] * Extra Blue Top Tube (06/18/2023 2:25 PM CDT) Hold Specimen [facility] 06/18/2023 3:47 PM CDT RH LABORATORY Blood STRUCTURE OF RIGHT UPPER LIMB / Unknown Venipuncture / Unknown 06/18/2023 2:25 PM CDT 06/18/2023 2:34 PM CDT Jah Felder MD LAB - BLOOD ORDERABL ES LABORATORY [facility] Acute Care Lab [address] Lab (1st floor, no room number) [address] * CBC with platelets and differential (06/18/2023 [...] MD LAB - BLOOD ORDERABL ES LABORATORY [facility] Acute Care Lab [address] Lab (1st floor, no room number) [place] [address] * Adult Type and Screen (06/18/2023 2:25 PM CDT) ABO/RH(D) O POS 06/18/2023 1:32 PM CDT RH BLOOD BANK Antibody Screen Negative Negative 06/18/2023 1:32 PM CDT RH BLOOD BANK SPECIMEN EXPIRATION DATE [id number] 06/18/2023 1:32 PM CDT RH BLOOD BANK Blood STRUCTURE OF RIGHT UPPER LIMB / Unknown Venipuncture / Unknown 06/18/2023 2:25 PM CDT 06/18/2023 2:34 PM CDT Jah Felder MD LAB - BLOOD BANK FRANCISCO T ORDER Performing Organization Address [facility]/ZIP Co de Phone Number RH BLOOD BANK [address] [place] [address] * (ABNORMAL) HCG QUANTitative (blood) (06/18/2023 [...] MD LAB - BLOOD ORDERABL ES LABORATORY [facility] Acute Care Lab [address] [facility] Lab (1st floor, no room number) [place] [address] * (ABNORMAL) UA with Microscopic (06/18/2023 1:32 PM CDT) Color Urine Straw Colorless, Straw, Light Yellow, Yellow 06/18/2023 2:10 PM CDT LABORATORY Appearance Urine Clear Clear 06/18/19 24 2:10 PM CDT LABORATORY Glucose Urine Negative Negative mg/dL 06/18/2023 2:10 PM CDT LABORATORY Bilirubin Urine Negative Negative 2:10 PM CDT LABORATORY Ketones Urine Negative Negative mg/dL 06/18/2023 2:10 PM CDT LABORATORY Specific [place] Urine 1.011 1.003 - 1.035 06/18/2023 2:10 [...] MD LAB - URINE ORDERABL ES LABORATORY [facility] Acute Care Lab [address] Lab (1st floor, no room number) [place] [address], [facility] from Last 3 Months Care Teams Field Assessor Relationship Specialty Start Date End Date Beka Baker MD [facility] [address] [place] [address] PCP - General Family Practice 08/29/18
--- OUTSIDE RECORDS SUMMARY | 2023-09-17 14:01 | XMS_ITS | Encounter Summary ---
Author Organization [facility] Address [address] [facility] [place] [address] Care Team Providers Care Aircraft Instrument Engineer Name Role Phone Beka Baker MD Primary Care Provider [phone] Encounter Details Date Type Department Care Team (Late st Contact Info) Description 06/18/2023 1:55 PM CDT - 06/18/2023 3:20 PM CDT Emergency [facility] Emergency Dept [address] [place] [address] Jah Felder MD [facility] [address] [facility] [address] [place] [address] Vaginal bleeding in Discharge Disposition: Home or [...] through Care Everywhere. * : Vaginal Bleeding (Greek) documented in this encounter Medications at Time of Discharge Medication Sig Dispensed Refills Start Date End Date clindamycin-benzoyl peroxide (BENZACLIN) gelIndications:Routine or child health check Apply topically 2 [...] ; has 2 children at home. * aJh Felder MD - 06/18/2023 1:17 PM CDT History Chief Complaint: No chief complaint on file. HPI Faith Soliman is a 27 year old female [...] Bilirubin Urine Negative Ketones Urine Negative Specific [place] Urine 1.011 Blood Urine Small (*) pH [...] POS Antibody Screen Negative SPECIMEN EXPIRATION DATE [id number] Emergency Department Course & Assessments: Interventions: Medications - No data to display Social Determinants of Health affecting care: None Disposition: The patient was discharged. Impression & Plan [facility] Diagnoses: None Medical Decision Making: with +home UPT, trace cramping, spotting, LMP 06/08. Non tender exam. Rh+, quant hcg 44. Discussed extremely early , spontaneous , less likely ectopic; offered pelvic us, declines; advised follow up philosophy and religion instructor this week for re-check, repeat hcg, return [...] CDT RH BLOOD BANK SPECIMEN EXPIRATION DATE [id number] 06/18/2023 1:32 PM CDT RH BLOOD BANK Blood STRUCTURE OF RIGHT UPPER LIMB / Unknown Venipuncture / Unknown 06/18/2023 2:25 PM CDT 06/18/2023 2:34 PM CDT Jah Felder MD LAB - BLOOD BANK FRANCISCO T ORDER RH BLOOD BANK [address] [place] [address], [facility] * CBC with platelets and differential (06/18/2023 [...] Felder MD LAB - BLOOD ORDERABL ES [facility] Care Lab [address] Lab (1st floor, no room number) [place] [phone] [place] [address] * Extra Red Top Tube (06/18/2023 2:25 PM CDT) Hold Specimen [facility] 06/18/2023 3:47 PM CDT RH LABORATORY Blood STRUCTURE OF RIGHT UPPER LIMB / Unknown Venipuncture / Unknown 06/18/2023 2:25 PM CDT 06/18/2023 2:34 PM CDT Jah Felder MD LAB - BLOOD ORDERABL ES [facility] Acute Care Lab [address] Lab (1st floor, no room number) [place] [id number] [place] [address] * Extra Blue Top Tube (06/18/2023 2:25 PM CDT) Hold Specimen [facility] 06/18/2023 3:47 PM CDT RH LABORATORY Blood STRUCTURE OF RIGHT UPPER LIMB / Unknown Venipuncture / Unknown 06/18/2023 2:25 PM CDT 06/18/2023 2:34 PM CDT Jah Felder MD LAB - BLOOD ORDERABL ES LABORATORY [facility] Acute Care Lab [address] Lab (1st floor, no room number) [place] [address] * (ABNORMAL) HCG QUANTitative (blood) (06/18/2023 2:25 PM CDT) Pathologist [facility] hCG Quantitative 44(H) <5 mIU/mL 06/18/19 24 3:04 PM CDT RH LABORATORY Comment: Adult: 0-5 mIU/mL for healthy non- person Neonates: Should be within normal ranges by 2 days after Blood STRUCTURE OF RIGHT UPPER LIMB / Unknown Venipuncture / Unknown 06/18/2023 2:25 PM CDT 06/18/2023 2:34 PM CDT Jah Felder MD LAB - BLOOD ORDERABL ES LABORATORY [facility] Lab [address] Lab (1st floor, no room number) [place] [phone] * (ABNORMAL) UA with Microscopic (06/18/2023 [...] 06/18/2023 2:10 PM CDT RH LABORATORY Specific [place] Urine 1.011 1.003 - 1.035 06/18/2023 2:10 [...] MD LAB - URINE ORDERABL ES LABORATORY [facility] Acute Care Lab [address] Lab (1st floor, no room number) [place] [address], [facility] documented in this encounter Visit Diagnoses Diagnosis Vaginal bleeding in Unspecified antepartum hemorrhage, unspecified as to episode of care documented in this encounter Care Teams Aircraft Instrument Engineer Relationship Specialty Start Date End Date Beka Baker MD [facility] [address] [place] [address] PCP - General Family Practice 08/29/18 documented as of this encounter"
--- OUTSIDE RECORDS SUMMARY | 2023-09-17 14:01 | XMS_ITS | Referral Summary ---
Author Organization [place] Address [address] [facility] [address] Care Team Providers Care Manager School Name Role Phone Beka Baker MD Primary Care Provider [phone] Encounters Date Type Department Care Team Description 06/18/2023 Travel 06/18/2023 1:55 PM CDT - 06/18/2023 3:20 PM CDT Emergency [facility] Emergency Dept [address] [place] [address] Jah Felder MD Vaginal bleeding in Discharge [...] Tube (06/18/2023 2:25 PM CDT) Hold Specimen [facility] 06/18/2023 3:47 PM CDT RH LABORATORY Blood STRUCTURE OF RIGHT UPPER LIMB / Unknown Venipuncture / Unknown 06/18/2023 2:25 PM CDT 06/18/2023 2:34 PM CDT Jah Felder MD LAB - BLOOD ORDERABL ES [facility] Acute Care Lab [address] Lab (1st floor, no room number) [place] [address] * Extra Blue Top Tube (06/18/2023 2:25 PM CDT) Hold Specimen [facility] 06/18/2023 3:47 PM CDT RH LABORATORY Blood STRUCTURE OF RIGHT UPPER LIMB / Unknown Venipuncture / Unknown 06/18/2023 2:25 PM CDT 06/18/2023 2:34 PM CDT Jah Felder MD LAB - BLOOD ORDERABL ES [facility] Acute Care Lab [address] Lab (1st floor, no room number) [place] [address], [facility] * CBC with platelets [...] MD LAB - BLOOD ORDERABL ES LABORATORY [facility] Acute Care Lab [address] [facility] Lab (1st floor, no room number) [place] [address] * Adult Type and Screen (06/18/2023 2:25 PM CDT) ABO/RH(D) O POS 06/18/2023 1:32 PM CDT RH BLOOD BANK Antibody Screen Negative Negative 06/18/2023 1:32 PM CDT RH BLOOD BANK SPECIMEN EXPIRATION DATE [id number] 06/18/2023 1:32 PM CDT RH BLOOD BANK Blood STRUCTURE OF RIGHT UPPER LIMB / Unknown Venipuncture / Unknown 06/18/2023 2:25 PM CDT 06/18/2023 2:34 PM CDT Jah Felder MD LAB - BLOOD BANK FRANCISCO T ORDER BLOOD BANK [address] [place] [address] * (ABNORMAL) HCG QUANTitative (blood) (06/18/2023 2:25 PM CDT) hCG Quantitative 44(H) <5 mIU/mL 06/18/19 24 3:04 PM CDT RH LABORATORY Comment: Adult: 0-5 mIU/mL for healthy non- person Neonates: Should be within normal ranges by 2 days after Blood STRUCTURE OF RIGHT UPPER LIMB / Unknown Venipuncture / Unknown 06/18/2023 2:25 PM CDT 06/18/2023 2:34 PM CDT Jah Felder MD LAB - BLOOD ORDERABL ES LABORATORY [facility] Acute Care Lab [address] [facility] Lab (1st floor, no room number) [place] [address] * (ABNORMAL) UA with Microscopic (06/18/2023 1:32 PM CDT) Color Urine Straw Colorless, Straw, Light Yellow, Yellow 06/18/2023 2:10 PM CDT LABORATORY Appearance Urine Clear Clear 06/18/19 2:10 PM CDT LABORATORY Glucose Urine Negative Negative mg/dL 06/18/2023 2:10 PM CDT LABORATORY Bilirubin Urine Negative Negative 2:10 PM CDT LABORATORY Ketones Urine Negative Negative mg/dL 06/18/2023 2:10 PM CDT LABORATORY Specific [place] Urine 1.011 1.003 - 1.035 06/18/2023 2:10 [...] 2(H) <=1 /HPF 06/18/2023 2:10 PM CDT RH LABORATORY Urine URINE SPECIMEN OBTAINED BY CLEAN CATCH PROCEDURE / Unknown Non-blood Collection / Unknown 06/18/2023 1:32 PM CDT 06/18/2023 1:58 PM CDT Jah Felder MD LAB - URINE ORDERABL ES RH LABORATORY [facility] Lab [address] [facility] [facility] Lab (1st floor, no room number) [place] [address], [facility] from Last 3 Months Care Teams Manager School Relationship Specialty Start Date End Date Beka Baker MD [facility] [address] [place] [address] PCP - General Family Practice 08/29/18
--- OUTSIDE RECORDS SUMMARY | 2023-09-17 14:01 | XMS_ITS | Encounter Summary ---
Author Organization [place] Address [address] [facility] [place] [address] Care Team Providers Care Tissue Technologist Name Role Phone Beka Baker MD Primary Care Provider [phone] Encounter Details Date Type Department Care Team [...] on filedocumented in this encounter Care Teams Tissue Technologist Relationship Specialty Start Date End Date Beka Baker MD [facility] [address] [place] [address] PCP - General Family Practice 08/29/18 documented as of this encounter
[2023-09-17 18:27] LABS: Bacterial Vaginosis* POSITIVE (Negative); Candida glab/krus NOT DETECTED (No Detected); Candida species NOT DETECTED (No Detected); Trichomonas vaginalis NOT DETECTED (No Detected)
== END 2023-09-17 13:56 | disposition home or self-care (01) ==
LOC: NFLDREF 13:58
PROVIDERS: Visit Provider Obstetrics & Gynecology
DX: N89.8 Other specified noninflammatory disorders of vagina (principal)
CPT/HCPCS: 81513; 87481; 87491; 87591; 87661

== ENCOUNTER 2023-10-17 13:34 | Outpatient (CLI) | payer MEDICAID, SELFPAY ==
--- OUTSIDE RECORDS SUMMARY | 2023-10-17 13:38 | XMS_ITS | Clinical Summary ---
Author Organization [place] Address [address] [facility] [place] [address] Care Team Providers Care Occupational Therapist Assistants Name Role Phone Beka Baker MD Primary Care Provider [phone] Allergies No known active allergies Medications Medication [...] 09/06/2002, 12/11/1998, Additional history exists COVID-19 Vaccine (2022- season) 2022 PHQ-2 (once per calendar year) [...] age to complete this topic Care Teams Occupational Therapist Assistants Relationship Specialty Start Date End Date Beka Baker MD PCP - General Family Practice 08/29/18
--- OUTSIDE RECORDS SUMMARY | 2023-10-17 13:38 | XMS_ITS | Referral Summary ---
Author Organization [place] Address [address] [facility] [place] [address] Care Team Providers Care Car Pincher Name Role Phone Beka Baker MD Primary Care Provider [phone] Allergies No known active allergies Medications Medication [...] of Treatment Not on file Care Teams Car Pincher Relationship Specialty Start Date End Date Beka Baker MD PCP - General Family Practice 08/29/18
[2023-10-17 23:17] LABS: Chlamydia DNA Amplified* NOT DETECTED (No Detected); GC DNA Amplified* NOT DETECTED (No Detected)
[2023-10-21 11:38] LABS: HSV 1 Subtype by PCR Not Detected; HSV 2 Subtype by PCR Not Detected; Herpes Simplex Subtype Source Tissue
== END 2023-10-17 13:35 | disposition home or self-care (01) ==
PROVIDERS: Visit Provider Nurse Practitioner Family
DX: Z11.3 Encounter for screening for infections with a predominantly sexual mode of transmission (principal)
CPT/HCPCS: 86592; 86703; 86706; 86803; 87491; 87529; 87591

== ENCOUNTER 2023-11-18 13:10 | Outpatient (CLI) | payer MEDICAID, SELFPAY ==
--- OUTSIDE RECORDS SUMMARY | 2023-11-18 13:14 | XMS_ITS | Clinical Summary ---
Author Organization [place] Address [address] [facility] [place] [address] Care Team Providers Care Technical Internship Name Role Phone Beka Baker MD Primary Care Provider [phone] Allergies No known active allergies Medications Medication [...] Completed 999, 06/19/1998, 03/06/1998, Additional history exists MENINGITIS IMMUNIZATION Aged Out [...] age to complete this topic Care Teams Technical Internship Relationship Specialty Start Date End Date Beka Baker MD PCP - General Family Practice 08/29/18
--- OUTSIDE RECORDS SUMMARY | 2023-11-18 13:14 | XMS_ITS | Referral Summary ---
Author Organization [place] Address [address] [facility] [place] [address] Care Team Providers Care Weigh Machine Operator Name Role Phone Beka Baker MD Primary Care Provider [phone] Allergies No known active allergies Medications Medication [...] of Treatment Not on file Care Teams Weigh Machine Operator Relationship Specialty Start Date End Date Beka Baker MD PCP - General Family Practice 08/29/18
[2023-11-18 15:28] LABS: Bacterial Vaginosis* Negative (Negative); Candida glab/krus NOT DETECTED (No Detected); Candida species DETECTED (No Detected); Trichomonas vaginalis NOT DETECTED (No Detected)
[2023-11-18 16:00] LABS: Chlamydia DNA Amplified* NOT DETECTED (No Detected); GC DNA Amplified* NOT DETECTED (No Detected)
== END 2023-11-18 13:11 | disposition home or self-care (01) ==
PROVIDERS: Visit Provider Registered Nurse
DX: N89.8 Other specified noninflammatory disorders of vagina (principal); Z11.3 Encounter for screening for infections with a predominantly sexual mode of transmission
CPT/HCPCS: 81513; 87481; 87491; 87591; 87661

== ENCOUNTER 2023-12-23 17:03 | Outpatient (CLI) | payer MEDICAID, SELFPAY ==
--- OUTSIDE RECORDS SUMMARY | 2023-12-26 13:13 | XMS_ITS | Referral Summary ---
Author Organization [place] Address [address] [facility] [place] [address] Care Team Providers Care Cook At School Name Role Phone Beka Baker MD Primary Care Provider [phone] Allergies No known active allergies Medications Medication [...] of Treatment Not on file Care Teams Cook At School Relationship Specialty Start Date End Date Beka Baker MD [facility] [address] [place] [address] PCP - General Family Practice 08/29/18
--- OUTSIDE RECORDS SUMMARY | 2023-12-26 13:13 | XMS_ITS | Clinical Summary ---
Author Organization [place] Address [address] [facility] [place] [address] Care Team Providers Care Soa Architect Name Role Phone Beka Baker MD Primary Care Provider [phone] Allergies No known active allergies Medications Medication [...] 03/06/2019 03/06/2009, 09/06/2002, 12/11/1998, Additional history exists PHQ-2 (once per calendar year) 2023 COVID-19 Vaccine ( - season) 2023 INFLUENZA VACCINE (#1) 2023 PAP 06/20/2025 06/20/2022 RSV VACCINE (1 - 1-dose 75+ series) 2072 HEPATITIS B IMMUNIZATION Completed 999, 06/19/1998, 03/06/1998, [...] age to complete this topic Care Teams Soa Architect Relationship Specialty Start Date End Date Bkea Baker MD [facility] [address] [place] [address] PCP - General Family Practice 08/29/18
== END 2023-12-23 17:04 | disposition home or self-care (01) ==
LOC: NFLDREF 12-26 13:03
PROVIDERS: Visit Provider Physician Assistant
DX: N89.8 Other specified noninflammatory disorders of vagina (principal); N76.0 Acute vaginitis
CPT/HCPCS: 87086

== ENCOUNTER 2024-02-25 09:57 | Outpatient (CLI) | payer MEDICAID, SELFPAY ==
[2024-02-25 15:18] LABS: Chlamydia DNA Amplified* NOT DETECTED (No Detected); GC DNA Amplified* NOT DETECTED (No Detected)
== END 2024-02-25 09:58 | disposition home or self-care (01) ==
PROVIDERS: Visit Provider Midwife
DX: N76.0 Acute vaginitis (principal)
CPT/HCPCS: 87109; 87491; 87591

== ENCOUNTER 2024-05-03 10:53 | Outpatient (CLI) | payer MEDICAID, SELFPAY ==
[2024-05-04 00:54] LABS: Chlamydia DNA Amplified* NOT DETECTED (No Detected)
[2024-05-04 00:59] LABS: GC DNA Amplified* DETECTED (No Detected)
== END 2024-05-03 10:54 | disposition home or self-care (01) ==
LOC: LKVREF 10:53
PROVIDERS: Visit Provider Physician Assistant
DX: Z11.3 Encounter for screening for infections with a predominantly sexual mode of transmission (principal)
CPT/HCPCS: 87491; 87591

== ENCOUNTER 2024-06-09 11:37 | Outpatient (CLI) | payer MEDICAID, SELFPAY ==
[2024-06-09 23:07] LABS: Chlamydia DNA Amplified* NOT DETECTED (No Detected); GC DNA Amplified* NOT DETECTED (No Detected)
== END 2024-06-09 11:38 | disposition home or self-care (01) ==
PROVIDERS: Visit Provider Nurse Practitioner Family
DX: Z11.3 Encounter for screening for infections with a predominantly sexual mode of transmission (principal)
CPT/HCPCS: 87491; 87591

== ENCOUNTER 2024-08-27 14:43 | Outpatient (CLI) | payer MEDICAID, SELFPAY | END 2024-08-27 14:44 | disposition home or self-care (01) | LOC: NFLDREF 08-31 02:43 | PROVIDERS: Visit Provider Physician Assistant | DX: L29.9 Pruritus, unspecified (principal); N39.0 Urinary tract infection, site not specified; Z22.39 Carrier of other specified bacterial diseases | CPT/HCPCS: 87086 ==

== ENCOUNTER 2024-12-01 09:57 | Outpatient (CLI) | payer MEDICAID, SELFPAY ==
[2024-12-01 14:34] LABS: Chlamydia DNA Amplified* NOT DETECTED (No Detected); GC DNA Amplified* NOT DETECTED (No Detected)
== END 2024-12-01 09:58 | disposition home or self-care (01) ==
PROVIDERS: Visit Provider Advanced Practice Midwife
DX: Z11.3 Encounter for screening for infections with a predominantly sexual mode of transmission (principal); L68.0 Hirsutism; R53.83 Other fatigue
CPT/HCPCS: 84443; 86592; 86703; 86706; 86803; 87340; 87491; 87591

== ENCOUNTER 2025-03-10 11:11 | Emergency (ER) | payer MEDICAID, SELFPAY ==
--- OUTSIDE RECORDS SUMMARY | 2024-01-29 22:30 | XMS_ITS | Continuity of Care Document ---
Author Organization [facility] Address [address] [address] [place] [address] Phone Care Team Providers Care Tire Repairman Name Role Phone No Information Unavailable Unavailable Allergies, Adverse Reactions, Alerts Substance Reaction Status Criticality No Known Allergies Active No Inform ation Medications Medication Instructions Dosage Effective Dates (start - stop) Status Comments omeprazole 20 mg capsule,delayed release take 1 capsule by ORAL route every day before breakfast 20 MG - Active Needs OV for further refills. dicyclomine 20 mg tablet take 1 tablet by ORAL route 2 times every day 20 MG - Active Needs OV for further refills. valacyclovir 500 mg tablet take 1 Tablet by oral route every day as needed 500 MG - Active Procedures Procedure Date Offic/outpt E&m [facility] Routine Serum Collection Advance Directives Directive Yes / No Effective Date File Name No Information Encounters Encounter Description Practice Location Reason(s) For Visit Diagnoses Date Provider Providers Copied on Encounter [facility], [address] [address], [place], [place], [id number], [place] tel:[phone] No Information No Information [facility], [address] [address], [place] [place], [address], [place] tel:[phone] [facility] No Information Jasp[facility] Cramer. [address] [facility], [facility] [address], [place], [place], [id number], [place]. tel:[phone] Offic/outpt E&m [facility], [address] [address], [place], [place], [address], tel:[phone] [facility] GI Symptoms or Concerns (chief complaint) Irritable bowel syndrome with both constipation and diarrheaHeartburn Nausea and vomiting, unspecified vomiting type 3 Jaspal Cramer. [address] [facility], [address], [id number], [place]. tel:[phone] Referring Provider: Referral Self, USE FOR SELF REFERRALS. [facility], [address] [address], [place], [address], [place] tel:[phone] [facility] No Information 3 Lewis Song. [address] [facility], [facility] [address], [place], [place], [address], [place]. tel:[phone] Family History Family Member Type Diagnosis Age At Onset Problem Family history of Irritable bowel syndrome Problem Family history of Irritable bowel syndrome Immunizations Vaccine Date Status Comments tetanus toxoid, reduced diphtheria toxoid, and acellular pertussis vaccine, adsorbed administered Note: [facility] b i-directional interface ; Source: Other Registry tetanus toxoid, reduced diphtheria toxoid, and acellular pertussis vaccine, adsorbed administered Note: [facility] b i-directional interface ; Source: Other Registry Havrix pediatric administered Note: [facility] bi-directional interface ; Source: Other Registry tetanus toxoid, reduced diphtheria toxoid, and acellular pertussis vaccine, adsorbed administered Note: [facility] b i-directional interface ; Source: Other Registry Havrix pediatric administered Note: [facility] bi-directional interface ; Source: Other Registry human papilloma virus vaccin e, quadrivalent administered Note: [facility] bi-direct ional interface ; Source: Other Registry human papilloma virus vaccin e, quadrivalent administered Note: [facility] bi-direct ional interface ; Source: Other Registry meningococcal polysaccharide (groups A, C, Y and W-135) diphtheria toxoid conjugate vaccine (MCV4P) administered Note: [facility] bi-direct ional interface ; Source: Other Registry varicella virus vaccine administered Note : [facility] bi-directional interface ; Source: Other Registry human papilloma virus vaccin e, quadrivalent administered Note: [facility] bi-direct ional interface ; Source: Other Registry poliovirus vaccine, inactivated administe red Note: [facility] bi- directional interface ; Source: Other Registry measles, mumps and rubella v irus vaccine administered Note: [facility] bi-direct ional interface ; Source: Other Registry diphtheria, tetanus toxoids and acellular pertussis vaccine administered Note: [facility] b i-directional interface ; Source: Other Registry Haemophilus influenzae type b vaccine, conjugate unspecified formulation administered Note: [facility] bi-direct ional interface ; Source: Other Registry diphtheria, tetanus toxoids and acellular pertussis vaccine administered Note: [facility] b i-directional interface ; Source: Other Registry measles, mumps and rubella v irus vaccine administered Note: [facility] bi-direct ional interface ; Source: Other Registry varicella virus vaccine administered Note : [facility] bi-directional interface ; Source: Other Registry rotavirus, live, pentavalent vaccine administered Note: [facility] bi-direct ional interface ; Source: Other Registry Energix Pediatric administered Note: [facility] bi-directional interface ; Source: Other Registry hepatitis B vaccine, unspeci fied formulation administered Note: [facility] bi-direct ional interface ; Source: Other Registry Haemophilus influenzae type b vaccine, conjugate unspecified formulation administered Note: [facility] bi-direct ional interface ; Source: Other Registry diphtheria, tetanus toxoids and acellular pertussis vaccine administered Note: [facility] b i-directional interface ; Source: Other Registry rotavirus, live, pentavalent vaccine administered Note: [facility] bi-direct ional interface ; Source: Other Registry poliovirus vaccine, inactivated administe red Note: [facility] bi- directional interface ; Source: Other Registry Haemophilus influenzae type b vaccine, conjugate unspecified formulation administered Note: [facility] bi-direct ional interface ; Source: Other Registry diphtheria, tetanus toxoids and acellular pertussis vaccine administered Note: [facility] b i-directional interface ; Source: Other Registry poliovirus vaccine, inactivated administe red Note: [facility] bi- directional interface ; Source: Other Registry Energix Pediatric administered Note: [facility] bi-directional interface ; Source: Other Registry diphtheria, tetanus toxoids and acellular pertussis vaccine administered Note: [facility] b i-directional interface ; Source: Other Registry Haemophilus influenzae type b vaccine, conjugate unspecified formulation administered Note: [facility] bi-direct ional interface ; Source: Other Registry Energix Pediatric administered Note: [facility] bi-directional interface ; Source: Other Registry Payers Payer name Insurance type Covered democrat ID Authoriza tion(s) No Information Social History Type Description Quantity Date Captured Comments Sex Female Smoking Status No Information Chief Complaint And Reason For Visit No Information Reason For Referral Reason For Referral No Information History Of Present Illness Encounter Date Complaint History Of Prese nt Illness GI Symptoms or Concerns Ms. Darnell is presents to clinic to discuss several different GI issues. One is nausea. This seems to be a problem after larger meals. It is not clear if gluten contributes to symptoms. Less commonly, she will throw up. Often this is smaller volume. This started in July. About two years ago she started to have heartburn symptoms. This increased a lot since October. It is happening daily. Caffeine definitely makes this worse. She feels heartburn as a sour per in the chest and neck. Tums helps this. She notes that in the last few months she is had more problems with stress eating and weight gain. Since November she is had irregular bowel movements, more often diarrhea. She can have multiple episodes of diarrhea in a day, and then not have a stool for a day and struggles to pass a very hard stool. She is not had a normal bowel movement in a long time. There is a family history of irritable bowel. She notes that she is had some abdominal cramping that is worse when she is constipated Functional Status Date Functional Assessmen t No Information Instructions Date Instruction Additional Infor mation No Information Assessments Type Assessment Date No Information Patient Care Teams Name Effective Dates (start - stop) Status Members No Information
--- OUTSIDE RECORDS SUMMARY | 2024-01-29 22:30 | XMS_ITS | Continuity of Care Document ---
Author Organization [facility] Address [address] [address] [place] [address] Phone Care Team Providers Care Grain Broker And Market Operator Name Role Phone No Information Unavailable Unavailable [...] - Active Procedures Procedure Date Offic/outpt E&m [facility] Routine Serum Collection Advance Directives Directive Yes / No Effective Date File Name No Information Encounters Encounter Description Practice Location Reason(s) For Visit Diagnoses Date Provider Providers Copied on Encounter [facility], [address] [address], [place], [place], [id number], [place] tel:[phone] No Information No Information [facility], [address] [address], [place] [facility], [address], [place] tel:[phone] [facility] No Information Jaspal Cramer. [address] [facility], [facility] [address], [place], [place], [id number], [place]. tel:[phone] Offic/outpt E&m [facility], [address] [address], [place], [place], [id number], tel:[phone] [facility] GI Symptoms or Concerns (chief complaint) Irritable bowel syndrome with both constipation and diarrheaHeartburn Nausea and vomiting, unspecified vomiting type 3 Jaspal Cramer. [address] [facility], [address], [id number], [place]. tel:[phone] Referring Provider: Referral Self, USE FOR SELF REFERRALS. [facility], [address] [address], [place], [address], [place] tel:[phone] [facility] No Information 3 Lewis Song. [address] [facility], [facility] [address], [place], [place], [address], [place]. tel:[phone] Family History Family Member Type Diagnosis Age [...] Registry Payers Payer name Insurance type Covered libertarian ID Authoriza tion(s) No Information Social History [...]
--- OUTSIDE RECORDS SUMMARY | 2025-02-12 03:00 | XMS_ITS ---
Author Organization [facility] Address [address] [place] [address] Care Team Providers Care Commercial Field Inspector Name Role Phone Migration, Provider Unavailable Unavailable REASON FOR VISIT EMR-Thaddeus Encounters Encounter Location Date Provider Diagnosis [facility] [address] [place] [place] [address] 02/12/2025 Provider Migration Plan Of Treatment No Information Progress Notes * ERASTO HUBEROB:1995 ( 29 yo F)Acc No.[id number]:02/12/2025 Patient:?MAYO SEA :1995???Age:29 Y???Sex:FemalePhone:[phone] Address:[address] [place] [address], [address] Subjective: * Chief Complaints: * E MR-Thaddeus * * Date:?
--- OUTSIDE RECORDS SUMMARY | 2025-02-13 03:00 | XMS_ITS ---
Author Organization [facility] Address [address] [place] [address] Care Team Providers Care Automatic Drill Operator Name Role Phone Migration, Provider Unavailable Unavailable REASON FOR VISIT EMR-Thaddeus Medications Medication SIG (Take, Route, Frequency, Duration) Notes Start Date End Date Status metroNIDAZOLE 500 MG Tablet Oral ActivePantoprazole Sodium 20 MG Tablet Delayed ReleaseOralActiveOndansetron HCl 4 MG TabletOralActivevalACYclovir HCl 500 MG TabletOralActive Encounters Encounter Location Date Provider Diagnosis [address] [address] 02/13/2025 Provider Migration Plan Of Treatment No Information Progress Notes * ALEX HUBERSHONNAOB:1995 ( 29 yo F)Acc No.[id number]:02/13/2025 Patient:?SEA HUBER :1995???Age:29 Y???Sex:FemalePhone:[phone] Address:[address] [place] [address], [address] Subjective: * Chief Complaints: * E MR-Thaddeus * Medications: T akingmetroNIDAZOLE 500 MG Tablet Oral Ondansetron HCl 4 MG Tablet Oral valACYclovir HCl 500 MG Tablet Oral Pantoprazole Sodium 20 MG Tablet Delayed Release Oral Taking metroNIDAZOLE 500 MG Tablet Oral Taking Ondansetron HCl 4 MG Tablet Oral Taking valACYclovir HCl 500 MG Tablet Oral Taking Pantoprazole Sodium 20 MG Tablet Delayed Release Oral * * Date:?
--- OUTSIDE RECORDS SUMMARY | 2025-03-10 11:13 | XMS_ITS | Clinical Summary ---
Author Organization [place] Address [address] [place] [address] Care Team Providers Care Power Tool Repair Technician Name Role Phone Beka Baker MD Primary Care Provider [phone] Allergies No known active allergies Medications MedicationSigDispense QuantityRefillsLast FilledStart DateEnd DateStatus clindamycin-benzoyl peroxide (BENZACLIN) gel Indications:Routine or child health checkApply topically 2 times daily. 50 g 11010/08/2010ctive Active Problems ProblemNoted DateDiagnosed NhhkPnzyin91/21/2007Cataract Overview (12/15/2014): congenital Problem list name updated by automated process. Provider to review Resolved Problems ProblemNoted DateDiagnosed DateResolved DateNO ACTIVE SABFITKG58/12/2005 12/05/2006 Immunizations ImmunizationAdministration DatesNext DueDTAP (<7y)09/06/2002,12/11/1998, 03/06/1998,01/11/1998,1997HEPA2009,03/06/2009HIB (PRP-T)12/11/1998, 03/06/1998,01/11/1998,1997HPV105/07/2008,11/07/2008,09/06/2008HepB 06/19/1998,1997,1997MMR (MMRII)09/06/2002,09/11/1998Mantoux Tuberculin Skin Test09/06/2002Meningococcal ACWY (Menactra??)11/07/2008 Poliovirus, inactivated (IPV)09/06/2002,09/11/1998,01/11/1998,1997 Rotavirus, Oyuwlwsucir46/05/1999,03/06/1998,01/11/1998TDAP Vaccine (Boostrix) 03/06/2009Varicella (Varivax)09/06/2008,09/11/1998 Social History Tobacco UseTypesPacks/DayYears UsedDateSmoking Tobacco: NeverSmokeless Tobacco: NeverAlcohol UseStandard Drinks/WeekCommentsNo0 (1 standard drink = 0.6 oz pure alcohol)Adolescent EducationAnswerDate RecordedGetting School Help NeededNot on file4CommentsNoSex and Gender InformationValueDate RecordedSex Assigned at BirthNot on fileLegal DbnOeikdg53/04/2012 3:38 AM CSTGender Identity Not on fileSexual OrientationNot on file Last Filed Vital Signs Vital SignReadingTime TakenCommentsBlood Irtlswrr725/8304 2:29 PM CDT Mjloj8674 2:29 PM HNTTugngmijiku70.5 ??C (97.7 ??F)06/18/2023 2:29 PM CDTRespiratory Qyyd2409 2:29 PM CDTOxygen Vwumppgvel24%06/18/2023 2:29 PM CDTInhaled Oxygen Concentration--Mzxmbw06.6 kg (98 lb 4 oz)10/08/2010 1:47 PM AUOTgxfwk121.2 cm (5' 1.5)10/08/2010 1:47 PM CDTBody Mass Index18.2607 1:47 PM CDT Plan of Treatment Health MaintenanceDue DateLast DoneCommentsADVANCE CARE BFFDAVEP93/25/1998ANNUAL REVIEW OF HM GWDHVH21 1997YEARLY PREVENTIVE VISIT, 2009, 09/06/2008, Additional history existsHIV ZEXTOZINT05/25/2013 HEPATITIS C QTEITIOKU33/25/2016DTAP/TDAP/TD VACCINE (7 - Td or Tdap)03/06/2019 03/06/2009, 09/06/2002, 12/11/1998, Additional history existsPHQ-2 (once per calendar year)2024OVID-19 VACCINE ( - 2024- season)2024INFLUENZA VACCINE (#1)2024PAP04/604/08/2022ZOSTER VACCINE (1 of 2)09/09/2047 HEPATITIS B NVSHIWUDlfjpwvwx30/05/1999, 06/19/1998, 03/06/1998, Additional history existsMENINGITIS VACCINEAged Out11/07/2008No longer eligible based on patient's age to complete this topicHPV AZPTEDJRccbxtgrs61/21/2009, 03/06/2009, 11/07/2008, Additional history existsPNEUMOCOCCAL VACCINE: PEDIATRICS (0 to 5 YEARS) AND AT-RISK PATIENTS (6 to 49 YEARS)Aged OutNo longer eligible based on patient's age to complete this topic Insurance * Guarantor: Mildred Jacobson TypeRelation to PatientDate of BirthPhone Billing AddressPersonal/JgowiiEjresv78/22/1975 [address] [place] [address] * Guarantor: MILDRED JACOBSON TypeRelation to PatientDate of BirthPhone Billing AddressPersonal/JucwymPcwwdu14/22/1975 [address] [address] * Guarantor: Mildred Jacobson TypeRelation to PatientDate of BirthPhone Billing AddressPersonal/GpntnaPndjjq74/22/1975 [address] [place] [address] * Guarantor: Sea Soliman TypeRelation to PatientDate of BirthPhone Billing AddressPersonal/ByjptwSklq27/25/[address] [place] [address] * Guarantor: Sea Soliman TypeRelation to PatientDate of BirthPhone Billing AddressThird ZpgcwIyfm39/25/[address] [place] [address] Care Teams Team MemberRelationshipSpecialtyStart DateEnd Beka Baker MD PCP - GeneralFamily Practice08/29/18
--- OUTSIDE RECORDS SUMMARY | 2025-03-10 11:13 | XMS_ITS | Patient Health Record ---
Author Organization [facility] Address [address] [place] [address] Care Team Providers Care Product Development Worker Name Role Phone Migration, Provider Unavailable Unavailable Reason For Referral No Information Medications Medication SIG (Take, Route, Frequency, Duration) Notes Start Date End Date Status metroNIDAZOLE 500 MG Tablet Oral ActivePantoprazole Sodium 20 MG Tablet Delayed ReleaseOralActiveOndansetron HCl 4 MG TabletOralActivevalACYclovir HCl 500 MG TabletOralActive Problems Problem Type SNOMED Code ICD Code Onset Dates Problem Status W/U Status Risk Notes Problem Acute pharyngitis (778220869) Acute pharyngitis, unspecified (J02.9) 04/10/2021 Active confirmed ProblemFever (506547176)Fever, unspecified (R50.9)04/10/2021ctiveconfirmed ProblemCounseling (129348486)Counseling, unspecified (Z71.9)04/10/2021ctive confirmedProblemCOVID-19 (594399328)COVID-19 (U07.1)04/10/2021ctiveconfirmed ProblemExposure to acute respiratory syndrome coronavirus 2 (611674480)Contact with and (suspected) exposure to COVID-19 (Z20.822)04/10/2021ctiveconfirmed ProblemCough (finding) (48737736)Cough, unspecified (R05.9)04/10/2021ctive confirmed Encounters Encounter Location Date Provider Diagnosis [facility] [address] [place] [address] 02/12/2025 Provider Migration [facility] [place] [address]/30/2025Provider Migration Plan Of Treatment No Information Insurance Providers Payer Name Payer Address Payer Phone Subscriber Number Group Number Insured Name Patient Relationship to Insured Coverage Start Date Coverage End Date [facility] [address] [place] [address] [id number] Child - Insured has Financial ResponsibilityRed Wing Hospital and ClinicPO [address] [place] [id number] Natalia HUBER - patient is the insured
[2025-03-10 11:19] VITALS: BP 125/87; PULSE 66; RESP 18; TEMP 36.8; O2SAT 99
--- NOTE | 2025-03-10 11:38 | ED_ITS ---
HPI - General Adult General Chief complaint: Ear/Nose/Throat Problem Stated complaint: ear ache Time Seen by Provider: 03/10/25 11:12 History of Present Illness HPI narrative: Patient is a 29-year-old female who has drainage of her left ear had ear pain. Right ear is a little bit muffled. She has had a slight cough and mild upper respiratory infection. No significant fever chills rigors, no production to her cough. No history of chronic lung issues. Related Data Previous Rx's ?Medication ?Instructions ?Recorded aluminum chloride 20 % topical 1 applic topical 2XW AL N 04/06/24 solution hyperhidrosis #60 mL valacyclovir 500 mg tablet 500 mg PO DAILY #90 tabs Allergies Allergy/AdvReac Type Severity Reaction Status Date / Time No Known Drug Allergies Allergy Verified 03/10/25 11:23 Review of Systems Status of ROS: Reports: 6 or more systems reviewed and unremarkable except as noted in History and below [facility] Medical History Ulnar nerve compression ?G56.20 - Lesion of ulnar nerve, unspecified upper limb (ICD-10) Encounter for IUD insertion ?Z30.430 - Encounter for insertion of intrauterine contraceptive device (ICD- 10) Hyperhidrosis of axilla ?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.510 - Primary focal hyperhidrosis, axilla (ICD-10) Bacterial vaginosis ?N76.0 - Acute vaginitis (ICD-10) ?B96.89 - Other specified bacterial agents as the cause of diseases cla ssified elsewhere (ICD-10) Acne vulgaris ?L70.0 - Acne vulgaris (ICD-10) Herpes simplex virus (HSV) infection ?B00.9 - Herpesviral infection, unspecified (ICD-10) Major depressive disorder with single episode ?F32.9 - Major depressive disorder, single episode, unspecified (ICD-10) Migraine headache ?G43.909 - Migraine, unspecified, not intractable, without status migrainosus (ICD-10) TMJ arthralgia ?M26.629 - Arthralgia of temporomandibular joint, unspecified side (ICD-10) Anxiety ?F41.9 - Anxiety disorder, unspecified (ICD-10) Allergic rhinitis ?J30.9 - Allergic rhinitis, unspecified (ICD-10) Carpal tunnel syndrome ?G56.00 - Carpal tunnel syndrome, unspecified upper limb (ICD-10) Torticollis, acute ?M43.6 - Torticollis (ICD-10) Chlamydia (11/27/21) ?A74.9 - Chlamydial infection, unspecified (ICD-10) Surgical History History of nasal septoplasty (08/01/17) ?Z98.890 - Other specified postprocedural states (ICD-10) Normal spontaneous vaginal delivery ?O80 - Encounter for full-term uncomplicated delivery (ICD-10) History of tonsillectomy (08/01/17) ?Z90.89 - Acquired absence of other organs (ICD-10) Family History Grandmother Thyroid disease Family/Other Mental health problem Social History Narrative: server service assistant at [employer] What is your current living situation?: I presently have a place to live Problems where you live: no known problems In the past 12 months, utilities in danger of being shut off: no In past 12 months, lack of transportation kept you from medical appts, meetings, work, or getting things needed for daily living: no In the past 12 mos, have been you worried that your food would run out before you had money to buy more?: never true In the past 12 mos, the food you bought just didn't last and you didn't have money to buy more?: never true Smoking Status: Never smoker Do you use any of these nicotine containing products: None Second hand tobacco smoke exposure: No How often do you have a drink containing alcohol: never AUDIT-C Alcohol total score: 0 Non-prescribed substance use: denies use How often does anyone, including family, friends and others, physically hurt you : never How often does anyone, including family, friends and others, insult or talk down to you: never How often does anyone, including family, friends and others, threaten you with harm: never How often does anyone, including family, friends and others, scream or curse at you: never service: No Exam Narrative: Exam Narrative: Objective: Vital signs look within normal limits Right serous otitis noted left TM looks red and irritated can see an obvious perforation. There is some clear pinkish drainage in the ear canal that is dried. Does appear to be an otitis media. Rest of HEENT unremarkable Const: Vital Signs, click to edit/add: Vital Signs - 24 hr 03/10/25 11:19 Temperature 98.2 F Pulse Rate [Right Pulse Oximeter] 66 Respiratory Rate 18 Blood Pressure [Ri ght Upper Arm] 125/87 Pulse Oximetry 99 Oxygen Delivery Me thod Room Air Course Vital Signs Vital signs: Initial Vital Signs Temperature 98.2 F 03/10/25 11:19 Temperature Source Temporal Artery Scan 03/10/25 11:19 Pulse Rate 66 03/10/25 11:19 Pulse Rhythm Regular 03/10/25 11:19 Pulse Strength 3+ Normal 03/10/25 11:19 Respiratory Rate 18 03/10/25 11:19 Blood Pressure 125/87 03/10/25 11:19 Blood Pressure Mean 99 03/10/25 11:19 Blood Pressure Position Sitting 03/10/25 11:19 Pulse Oximetry 99 03/10/25 11:19 Oxygen Delivery Method Room Air 03/10/25 11:19 Vital Signs Temperature 98.2 F 03/10/25 11:19 Pulse Rate 66 03/10/25 11:19 Respiratory Rate 18 03/10/25 11:19 Blood Pressure 125/87 03/10/25 11:19 Pulse Oximetry 99 03/10/25 11:19 Oxygen Delivery Method Room Air 03/10/25 11:19 Temperature 98.2 F 03/10/25 11:19 Pulse Rate 66 03/10/25 11:19 Respiratory Rate 18 03/10/25 11:19 Blood Pressure 125/87 03/10/25 11:19 Pulse Oximetry 99 03/10/25 11:19 Oxygen Delivery Method Room Air 03/10/25 11:19 Medical Decision Making MDM Narrative Medical decision making narrative: Upper respiratory infection with left otitis media right serous otitis, probable perforation of the left tympanic membrane recommend antibiotics. Recommend recheck in 10-14 days with primary care. Will prescribe through into the meds. And Tylenol Advil as needed. Return as needed. Lab Data Labs: Lab Results 03/10/25 Range/Units 11:30 SARS-CoV-2 (PCR) Negative SARS-CoV-2 (Negative) Influenza Type A (PCR) POSITIVE PCR FLU A A (Negative) Influenza Type B (PCR) Negative PCR FLU B (Negative) RSV (PCR) Negative PCR RSV (Negative) Discharge Plan Discharge Clinical Impression: Acute left otitis media Patient Disposition: Home, Self-Care Additional Instructions: Antibiotics as prescribed, recommend a recheck of your left ear drum with primary care in the next 10-14 days. Tylenol Advil as needed. Discharge Diet: Regular Prescriptions: No Action aluminum chloride 20 % solution 1 applic topical 2XW PRN (Reason: hyperhidrosis) Qty: 60 0RF valacyclovir 500 mg tablet 500 mg PO DAILY Qty: 90 3RF Follow Up/Referrals: Provider,Not a Local [Primary Care Provider, Family Practice] Stand Alone Forms: MyHealth Info Instructions
[2025-03-10 12:12] LABS: PCR FLU A POSITIVE PCR FLU A (Negative); PCR FLU B Negative PCR FLU B (Negative); PCR RSV Negative PCR RSV (Negative); SARS PCR* Negative SARS-CoV-2 (Negative)
== END 2025-03-10 11:52 | disposition home or self-care (01) ==
LOC: ED 11:45
PROVIDERS: Emergency Provider Family Medicine
DX: H66.92 Otitis media, unspecified, left ear (principal); R05.9 Cough, unspecified
CPT/HCPCS: 87631; 99283; 99284